=== PATIENT | female | born 1975 | race Caucasian/White ===

== ENCOUNTER 2019-07-28 08:03 | Outpatient (CLI) | payer OTHER, SELFPAY ==
--- NOTE | ~2019-07-28 | MM_ITS ---
EXAMINATION: MM screening [facility] BI w noemy HISTORY: Screening mammogram TECHNIQUE: Craniocaudal and mediolateral oblique 3-D tomosynthesis images were obtained and synthetic 2-D images were generated. CAD analysis was submitted and interpreted. COMPARISON: 07/14/2018, 07/21/2014 BREAST PARENCHYMAL COMPOSITION: The breasts are heterogeneously dense, which may obscure small masses . FINDINGS: There is no evidence of suspicious mass, calcification, or architectural distortion to sugg est malignancy in either breast. There has been no suspicious interval change. IMPRESSION: 1. No mammographic evidence of malignancy. 2. Recommend routine screening mammography in one year. BI-RADS Category 1: Negative Reviewed, dictated and finalized at location A.
== END 2019-07-28 08:04 | disposition home or self-care (01) ==
LOC: ANHIMG 08:09
PROVIDERS: Visit Provider Obstetrics & Gynecology
DX: Z12.31 Encounter for screening mammogram for malignant neoplasm of breast (principal)
CPT/HCPCS: 77063; 77067

== ENCOUNTER 2020-08-24 08:07 | Outpatient (CLI) | payer OTHER, SELFPAY ==
--- NOTE | ~2020-08-24 | MM_ITS ---
EXAMINATION: MM screening [facility] BI w noemy HISTORY: Screening mammogram TECHNIQUE: Craniocaudal and mediolateral oblique 3-D tomosynthesis images were obtained and synthetic 2-D images were generated. Rotated lateral craniocaudal views. CAD analysis was submitted and interp reted. COMPARISON: 07/28/2019, 07/12/2018, 07/21/2014 bilateral digital screening mammogram examinations BREAST PARENCHYMAL COMPOSITION: The breasts are heterogeneously dense, which may obscure small masses . FINDINGS: There is no evidence of suspicious mass, calcification, or architectural distortion to sugg est malignancy in either breast. There has been no suspicious interval change. IMPRESSION: 1. No mammographic evidence of malignancy. 2. Recommend routine screening mammography in one year. BI-RADS Category 1: Negative Reviewed, dictated and finalized at location A.
== END 2020-08-24 08:08 | disposition home or self-care (01) ==
LOC: ANHIMG 08:11
PROVIDERS: Visit Provider Nurse Practitioner Obstetrics & Gynecology
DX: Z12.31 Encounter for screening mammogram for malignant neoplasm of breast (principal)
CPT/HCPCS: 77063; 77067

== ENCOUNTER 2020-11-16 06:36 | Outpatient (CLI) | payer OTHER, SELFPAY ==
--- NOTE | ~2020-11-16 | MR_ITS ---
EXAMINATION: MR brain/brain stem wo/w con EXAM DATE: 11/16/2020 08:01 INDICATION: Multiple sclerosis, monitor. TECHNIQUE: Magnetic resonance imaging (MRI) of the brain/brain stem obtained without contrast. Sagit cyndee T1, axial diffusion, gradient echo (T2*), T1, T2, FLAIR sequences obtained. Patient was then inj ected with 13 cc intravenous Multihance contrast. Axial and coronal postcontrast T1 weighted sequence s obtained. Demyelinating protocol was utilized including sagittal FLAIR images. FINDINGS: There are approximately 20 signal abnormalities in the periventricular white matter, some i nvolving margins of the corpus callosum oriented perpendicularly to the ventricles, appearance is con sistent with the provided diagnosis of multiple sclerosis. Many of these lesions also have decreased T1 signal intensity. No posterior fossa lesions identified. There are no areas of abnormal enhancemen t on the post contrast images. There are no areas of restricted diffusion to suggest acute infarction. There is no acute hemorrhage seen on the T2*, a hemosiderin sensitive sequence. No intraparenchymal brain mass. The ventricles a re normal in size. There are no extra-axial collections. Flow voids are seen in the cerebral arteri es on the T2-weighted sequences consistent with their expected patency. The orbits are unremarkable. Soft tissue is unremarkable. IMPRESSION: Scattered white matter signal abnormalities consistent with quiescent multiple sclerosis. No enhancing lesions/evidence of active disease. Reviewed, dictated and finalized at location B. IMPRESSION: Scattered white matter signal abnormalities consistent with quiesce nt multiple sclerosis. No enhancing lesions/evidence of active disease.
[2020-11-16 07:28] LABS: Estimated Glomerular Filt Rate > 60
== END 2020-11-16 06:37 | disposition home or self-care (01) ==
DX: G35 Multiple sclerosis (principal); R93.0 Abnormal findings on diagnostic imaging of skull and head, not elsewhere classified
CPT/HCPCS: 70553; A9577

== ENCOUNTER 2021-10-14 08:02 | Outpatient (CLI) | payer OTHER, SELFPAY ==
--- NOTE | ~2021-10-14 | MM_ITS ---
EXAMINATION: MM screening [facility] BI w noemy HISTORY: Screening mammogram TECHNIQUE: Craniocaudal and mediolateral oblique 3-D tomosynthesis images were obtained and synthetic 2-D images were generated. CAD analysis was submitted and interpreted. COMPARISON: 08/24/2020, 07/20/2019, 07/14/2018 bilateral screening mammogram examinations BREAST PARENCHYMAL COMPOSITION: The breasts are heterogeneously dense, which may obscure small masses . FINDINGS: There is no evidence of suspicious mass, calcification, or architectural distortion to sugg est malignancy in either breast. There has been no suspicious interval change. IMPRESSION: 1. No mammographic evidence of malignancy. 2. Recommend routine screening mammography in one year. BI-RADS Category 1: Negative Reviewed, dictated and finalized at location A.
== END 2021-10-14 08:03 | disposition home or self-care (01) ==
LOC: ANHIMG 08:04
PROVIDERS: PCP Nurse Practitioner Obstetrics & Gynecology; Visit Provider Nurse Practitioner Obstetrics & Gynecology
DX: Z12.31 Encounter for screening mammogram for malignant neoplasm of breast (principal)
CPT/HCPCS: 77063; 77067

== ENCOUNTER → 2022-01-06 09:55 | Outpatient (CLI) | payer OTHER, SELFPAY ==
--- NOTE | ~2022-01-06 | MR_ITS ---
EXAMINATION: MR brain/brain stem wo/w con DATE: 01/06/2022 10:44 INDICATION: Multiple sclerosis. TECHNIQUE: Magnetic resonance imaging (MRI) of the brain and brainstem was performed without and with 13 mL MultiHance intravenous contrast. COMPARISON: Brain MRI 11/16/2020 FINDINGS: There are greater than 40 total lesions of increased T2-weighted signal intensity in the br ain, many of which are confluent. Of these lesions, many are periventricular, several are juxtacortic al, and multiple are infratentorial. None of the lesions enhance. There is no acute ischemic infarct or intracranial hemorrhage. The ventricles are normal in size. The orbits are normal. The paranasal s inuses are clear. The mastoid air cells are normal. IMPRESSION: 1. Multiple sclerosis, stable from 11/16/2020. Reviewed, dictated and finalized at location A. RWALKER
== END ==
DX: G35 Multiple sclerosis (principal)
CPT/HCPCS: 70553; A9577

== ENCOUNTER 2023-01-02 07:57 | Outpatient (CLI) | payer OTHER, SELFPAY ==
--- NOTE | ~2023-01-02 | MM_ITS ---
EXAMINATION: MM screening [facility] BI w noemy HISTORY: Screening mammogram TECHNIQUE: Craniocaudal and mediolateral oblique 3-D tomosynthesis images were obtained and synthetic 2-D images were generated. CAD analysis was submitted and interpreted. COMPARISON: 10/14/2021, 08/24/2020, 07/28/2019 BREAST PARENCHYMAL COMPOSITION: The breasts are heterogeneously dense, which may obscure small masses . FINDINGS: No suspicious mass, calcification, or architectural distortion are identified in either perlita ast to suggest malignancy. There has been no suspicious interval change. IMPRESSION: 1. No mammographic evidence of malignancy. 2. Recommend routine screening mammography in one year. BI-RADS Category 1: Negative Reviewed, dictated and finalized at location A.
== END 2023-01-02 07:58 | disposition home or self-care (01) ==
LOC: ANHIMG 08:03
PROVIDERS: Visit Provider Nurse Practitioner Obstetrics & Gynecology
DX: Z12.31 Encounter for screening mammogram for malignant neoplasm of breast (principal)
CPT/HCPCS: 77063; 77067

== ENCOUNTER → 2023-01-14 14:37 | Outpatient (CLI) | payer OTHER, SELFPAY ==
--- NOTE | ~2023-01-14 | MR_ITS ---
EXAMINATION: MR brain/brain stem wo/w con DATE: 01/14/2023 15:21 INDICATION: Relapsing remitting multiple sclerosis. TECHNIQUE: Magnetic resonance imaging (MRI) of the brain and brainstem was performed without and with 14 mL MultiHance intravenous contrast. COMPARISON: Brain MRI 01/06/2022 FINDINGS: There are greater than 40 total lesions of increased T2-weighted signal intensity in the br ain, many of which are confluent. Of these lesions, many are periventricular, several are juxtacortic al, and multiple are infratentorial. None of the lesions enhance. There is no acute ischemic infarct or intracranial hemorrhage. The ventricles are normal in size. The paranasal sinuses are clear. The m astoid air cells are normal. The orbits are normal. IMPRESSION: 1. Multiple sclerosis, stable from 01/06/2022. Reviewed, dictated and finalized at location A. R [employer]
== END ==
DX: G35 Multiple sclerosis (principal)
CPT/HCPCS: 70553; A9577

== ENCOUNTER 2024-04-05 09:05 | Outpatient (CLI) | payer OTHER, SELFPAY ==
--- NOTE | ~2024-04-05 | MM_ITS ---
EXAMINATION: MM screening courtney BI w noemy HISTORY: Screening TECHNIQUE: Craniocaudal and mediolateral oblique 3-D tomosynthesis images were obtained and synthetic 2-D images were generated. CAD analysis was submitted and interpreted. COMPARISON: Comparison to multiple prior studies sequentially, with oldest reviewed study dated 07/21. BREAST PARENCHYMAL COMPOSITION: Not Dense: The breasts are almost entirely fatty. FINDINGS: There is no evidence of suspicious mass, calcification, or architectural distortion to sugg est malignancy in either breast. There has been no suspicious interval change. IMPRESSION: 1. No mammographic evidence of malignancy. 2. Recommend routine screening mammography in one year. BI-RADS Category 1: Negative Reviewed, dictated and finalized at location B. DER SET UP OPERATOR JIG
--- OUTSIDE RECORDS SUMMARY | 2024-04-05 09:41 | XMS_ITS | Referral Summary ---
Author Organization [facility] Address [address] [place] [address] Care Team Providers Care Appeals Rn Name Role Phone Abdulaziz Miller MD Unavailable Laly Alonso DO Primary Care Provide r Source Comments [facility],non-owned Affiliates and Associated Physician Practices is amultiple site organization consisting of ambulatory clinics and hospital sitesin [place], [place], [place] and [place]. This disclosure is being madepursuant to the Care Everywhere program and may not contain all information available regarding this patient. Last updated 17.[facility] Allergies Active Allergy Reactions Criticality Noted Date Comments Latex Swelling 01/28/2017 Medications * Be aware that medications may not be up to date on this document. Alwaysverify current medications with the patient. Medication Sig Dispensed Refills Start Date End Date Status Glatiramer Acetate 40 MG/ML prefilled syringe Inject 20 mg subcutaneously Active benzonatate (TESSALON) 200 MG capsule Take 1 capsule by mouth 3 times daily as needed for Cough 30 capsule 02/21/2019 Active Additional Information Patient not taking.Reported on 03/10/2019 Active Problems Problem Noted Date Diagnosed Date Migraines 12/31/2009 Osteoarthritis 12/26/2008 Overview (12/26/2008): Lower back MS (multiple sclerosis) 05/09/2008 Screening for condition 05/09/2008 Overview (11/30/2014): Adult Abstraction Problem List Screening Pap Smear: Result: 12/28/2008,11/2006, 12/13/2007 Negative Mammogram: Result: Not avail in chart Immunizations Name Administration Dates Next Due TETANUS 03/02/2006 Social History Tobacco Use Types Packs/Day Years Used Date Smoking Tobacco: Never Smokeless Tobacco: Never Alcohol Use Standard Drinks/Week Comments Yes 0 (1 standard drink = 0.6 oz pur e alcohol) 1x weekly Sex and Gender Information Value Date Recorded Sex Assigned at Not on file Gender Identity Not on file Sexual Orientation Not on file Last Filed Vital Signs Vital Sign Reading Time Taken Comments Blood Pressure 110/70 03/10/2019 9:07 AM TRANSPORTATION SERVICES REPRESENTATIVE Pulse 77 03/10/2019 9:07 AM TRANSPORTATION SERVICES REPRESENTATIVE Temperature 37.2 ??C (98.9 ??F) 03/10/2019 9:07 AM CS T Respiratory Rate 16 03/10/2019 9:07 AM TRANSPORTATION SERVICES REPRESENTATIVE Oxygen Saturation 98% 03/10/2019 9:07 AM TRANSPORTATION SERVICES REPRESENTATIVE Inhaled Oxygen Concentration - - Weight 63.5 kg (140 lb) 03/10/2019 9:07 AM TRANSPORTATION SERVICES REPRESENTATIVE Height 160 cm (5' 3 ) 03/10/2019 9:07 AM TRANSPORTATION SERVICES REPRESENTATIVE Body Mass Index 24.8 03/10/2019 9:07 AM TRANSPORTATION SERVICES REPRESENTATIVE Plan of Treatment Not on file Procedures Procedure Name Priority Date/Time Associated Diagnosis Comments PAP IG RFLX HPV ASCU Routine 01/01/2010 10:20 AM CDT Routine gynecological examination from Last 3 Months or Most Recently Relevant to Health Maintenance Results * (ABNORMAL) PAP SMEAR IG RFLX HPV ASCU (PO REF LAB) (01/01/2010 10:20 AM CDT) Diagnosis (A) [facility] ACCOUNT BILL Comment: EPITHELIAL CELL ABNORMALITY. ATYPICAL SQUAMOUS CELLS OF UNDETERMINED SIGNIFICANCE. Recommendation (A) [facility] ACCOUNT BILL Comment:Suggest follow up as clinically appropriate. Specimen Adequacy [facility] ACCOUNT BILL Comment: Satisfactory for evaluation. ??Endocervical and/or squamous metaplastic cells (endocervical component) are present. Clinician Provided ICD9 [facility] ACCOUNT BILL Comment:V72.31 ; Routine stop attacher ecological examination Performed by [facility] ACCOUNT BILL Comment:Mariela Wiggins, Cyto technologist (ASCP) Electronically Signed by [facility] ACCOUNT BILL Comment:Margarita Briseno MD, Pathologist Comment . [facility] ACCOUNT BILL Pathologist Provided ICD9 [facility] ACCOUNT BILL Comment:795.01 Note [facility] ACCOUNT BILL Comment: The Pap smear is a screening test designed to aid in the detection of premalignant and malignant conditions of the uterine cervix. ??It is not a diagnostic procedure and should not be used as the sole means of detecting cervical cancer. ??Both false-positive and false-negative reports do occur. ? . IGLBP CPT Code Automation [facility] ACCOUNT BILL Comment: This liquid based ThinPrep(R) pap test was screened with the use of an image guided system. Reflex [facility] ACCOUNT BILL Comment: See below for HPV DNA testing results. ? . MICROSCOPIC CYTOLOGIC EXAMINATION OF SMEAR OF SPECIMEN FROM FEMALE GENITAL TRACT PREPARED USING PAPANICOLAOU TECHNIQUE / Unknown 01/01/2010 10:20 AM CDT 01/02/2010 3:45 AM CDT Narrative [facility] ACCOUNT BILL - 01/07/2010 4:13 PM TRANSPORTATION SERVICES REPRESENTATIVE No. of containers..01 CYTYC Thin Prep Vial Resulting Agency Comment [facility] [facility] ??[place] [phone] Abdulaziz Miller MD LAB - PATHOLOGY/CYTO LOGY ORDERABLES [facility] ACCOUNT BILL from Last 3 Months or Most Recently Relevant to Health Maintenance Care Teams Appeals Rn Relationship Specialty Start Date End Date Abdulaziz Miller MD [address] [facility] [facility] [address] [place] [address] PCP - OBGYN 12/26/08 Laly Alonso DO [address] [place] [id number] PCP - General 03/03/19
--- OUTSIDE RECORDS SUMMARY | 2024-04-05 09:41 | XMS_ITS | Clinical Summary ---
Author Organization [facility] Address [address] [place] [address] Care Team Providers Care Automation Tester Name Role Phone Abdulaziz Miller MD Unavailable Laly Alonso DO Primary Care Provide r Source Comments [facility],non-owned Affiliates and Associated Physician Practices is amultiple site organization consisting of ambulatory clinics and hospital sitesin [place], [place], [place] and [place]. This disclosure is being madepursuant to the Care Everywhere program and may not contain all information available regarding this patient. Last updated 17.[facility] Allergies Active Allergy Reactions Criticality Noted Date [...] Name Administration Dates Next Due TETANUS 03/02/2006 Family History Medical History Relation Name Comments Cancer Maternal Grandfather Cancer Maternal Grandmother Migraine Maternal Grandmother Relation Name Status Comments Maternal Grandfather Maternal Grandmother Social History Tobacco Use Types Packs/Day Years [...] Comments Blood Pressure 110/70 03/10/2019 9:07 AM DIRECTOR TRIAL Pulse 77 03/10/2019 9:07 AM DIRECTOR TRIAL Temperature 37.2 ??C (98.9 ??F) 03/10/2019 9:07 AM CS T Respiratory Rate 16 03/10/2019 9:07 AM DIRECTOR TRIAL Oxygen Saturation 98% 03/10/2019 9:07 AM DIRECTOR TRIAL Inhaled Oxygen Concentration - - Weight 63.5 kg (140 lb) 03/10/2019 9:07 AM DIRECTOR TRIAL Height 160 cm (5' 3 ) 03/10/2019 9:07 AM DIRECTOR TRIAL Body Mass Index 24.8 03/10/2019 9:07 AM DIRECTOR TRIAL Plan of Treatment Health Maintenance Due Date Last Done Comments COLOGUARD (AGES 45-75) - COL ON CA SCREENING 1973 COLON MONITORING 1973 COLONOSCOPY - COLON CA SCREENING 1973 CT COLONOGRAPHY - COLON CA SCREENING 1973 Colorectal Cancer Screening 1973 FIT - COLON CA SCREENING 1973 FLEX SIG - COLON CA SCREENING 1973 LIPID TESTING 1973 MAMMOGRAM 1973 HIV SCREENING 1988 HEPATITIS C SCREENING 05/27/1991 HEPATITIS B VACCINE (1 of 3 - 19+ 3-dose series) 1992 PAP SMEAR 01/01/2013 01/01/2010, 12/28/2008 DTAP/TDAP/TD VACCINES (2 - T d or Tdap) 03/02/2016 03/02/2006 PNEUMOCOCCAL VACCINE 50+ (1 of 1 - PCV) 06/01/2023 ZOSTER VACCINE (1 of 2) 06/01/2023 COVID-19 VACCINE (1 - 2023-2 5 season) 2023 INFLUENZA VACCINE (#1) 2023 DEPRESSION SCREENING 03/02/2024 HIB VACCINE Aged Out No longer eligi ble based on patient's age to complete this topic HPV VACCINE Aged Out No longer eligi ble based on patient's age to complete this topic MENINGOCOCCAL (Group B) VACCINE Aged Out No longer eligible b ased on patient's age to complete this topic MENINGOCOCCAL VACCINE Aged Out No jesús lupe eligible based on patient's age to complete this topic PNEUMOCOCCAL VACCINE Aged Out No long er eligible based on patient's age to complete this topic Procedures Procedure Name Priority Date/Time Associated Diagnosis [...] ICD9 [facility] ACCOUNT BILL Comment:V72.31 ; Routine byproducts pump operator ecological examination Performed by [facility] ACCOUNT BILL [...] [facility] ACCOUNT BILL - 01/07/2010 4:13 PM DIRECTOR TRIAL No. of containers..01 CYTYC Thin Prep Vial Resulting Agency Comment [facility] [address] [phone] Abdulaziz Miller MD LAB - PATHOLOGY/CYTO LOGY ORDERABLES Performing Organization Address City/State/[facility] Co de Phone Number [facility] ACCOUNT BILL from Last 3 Months or Most Recently Relevant to Health Maintenance Care Teams Automation Tester Relationship Specialty Start Date End Date Abdulaziz Miller MD [address] [place] [address] [address] [place] [address] PCP - OBGYN 12/26/08 Laly Alonso DO [address] [place] [id number] PCP - General 03/03/19
--- OUTSIDE RECORDS SUMMARY | 2024-04-05 09:41 | XMS_ITS | Encounter Summary ---
Author Organization [facility] Address [address] [facility] [place] [address] Care Team Providers Care Dial Maker Name Role Phone Laly Alonso DO Primary Care Provide r Abdulaziz Miller MD Unavailable None, Pcp Primary Care Provider Unavailabl e Abdulaziz Miller MD Primary Care Provider Laly Alonso DO Primary Care Provide r Encounter Details Date Type Department Care Team (Late st Contact Info) Description 08/22/2010 [facility] Outpatient Visit EXTERNAL NON-[facility] DEPT Abdulaziz Miller MD [address] [facility] [address] [place] [address] Social History Tobacco Use Types Packs/Day Years Used Date Smoking Tobacco: Never Alcohol Use Standard Drinks/Week Comments Yes 0 (1 standard drink = 0.6 oz pur e alcohol) 1x weekly Sex and Gender Information Value Date Recorded Sex Assigned at Not on file Gender Identity Not on file Sexual Orientation Not on file documented as of this encounter Plan of Treatment Not on file documented as of this encounter Visit Diagnoses Not on filedocumented in this encounter Care Teams Dial Maker Relationship Specialty Start Date End Date Laly Alonso DO [address] [place] [id number] PCP - General 05/09/08 09/03/12 Abdulaziz Miller MD [address] [place] [address] PCP - OBGYN 12/26/08 None, Pcp [place] [address] PCP - General 09/04/12 05/24/13 Abdulaziz Miller MD [address] [facility] [address] [place] [address] PCP - General Obstetrics and Gynecology 08/31/1303/02 Laly Alonso DO [address] [place] [id number] PCP - General 03/03/19 documented as of this encounter
--- OUTSIDE RECORDS SUMMARY | 2024-04-05 09:41 | XMS_ITS | Patient Health Summary ---
Author Organization [facility] Address [address] [place] [address] Care Team Providers Care Analysis Or Research Safety Inspector Name Role Phone Bertrand Miller MD Unavailable Laly Torre DO Primary Care Provide r Note from [facility],non-owned Affiliates and Associated Physician Practices is amultiple site organization consisting of ambulatory clinics and hospital sitesin [place], [place], [place] and [place]. This disclosure is being madepursuant to the Care Everywhere program and may not contain all information available regarding this patient. Last updated 17.[facility] Allergies * Latex(Swelling) Medications * Be aware that medications may not be up to date on this document. Alwaysverify current medications with the patient. * Glatiramer Acetate 40 MG/ML prefilled syringe Inject 20 mg subcutaneously * benzonatate (TESSALON) 200 MG capsule(Started 02/21/2019) Take 1 capsule by mouth 3 times daily as needed for Cough Active Problems Problem Noted Date Diagnosed Date Migraines 12/31/2009 Osteoarthritis 12/26/2008 MS (multiple sclerosis) 05/09/2008 Screening for condition 05/09/2008 Immunizations * TETANUS(Given 03/02/2006) Social History Tobacco Use Types Packs/Day Years [...] Comments Blood Pressure 110/70 03/10/2019 9:07 AM OFFSET PRESSMAN Pulse 77 03/10/2019 9:07 AM OFFSET PRESSMAN Temperature 37.2 ??C (98.9 ??F) 03/10/2019 9:07 AM CS T Respiratory Rate 16 03/10/2019 9:07 AM OFFSET PRESSMAN Oxygen Saturation 98% 03/10/2019 9:07 AM OFFSET PRESSMAN Inhaled Oxygen Concentration - - Weight 63.5 kg (140 lb) 03/10/2019 9:07 AM OFFSET PRESSMAN Height 160 cm (5' 3 ) 03/10/2019 9:07 AM OFFSET PRESSMAN Body Mass Index 24.8 03/10/2019 9:07 AM OFFSET PRESSMAN Procedures * MRI BRAIN WWO CONTRAST(Performed 09/10/2015) Performed for Migraine with aura and without status migrainosus, not intractable * MRI BRAIN WWO CONTRAST(Performed 09/05/2013) Performed for MS (multiple sclerosis) (HCC) * MRI BRAIN WWO CONTRAST(Performed 09/13/2012) Performed for MS (multiple sclerosis) (HCC) * MRI BRAIN WWO CONTRAST(Performed 07/21/2011) Performed for Multiple sclerosis (HCC) * LAB RESULTS ORDER(Performed 09/04/2010) * PATHOLOGY SPECIMEN(Performed 08/22/2010) Performed for Menorrhagia * TSH HI LOW REFLEX FREE T4(Performed 07/26/2010) * COMPREHENSIVE METABOLIC PANEL(Performed 07/26/2010) * FSH + LH PANEL(Performed 07/26/2010) Performed for Menorrhagia * CBC W AUTO DIFFERENTIAL(Performed 07/26/2010) Performed for Menorrhagia * PT-INR(Performed 07/26/2010) Performed for Menorrhagia * PTT(Performed 07/26/2010) Performed for Menorrhagia * US PELVIS W TRANSVAG NON OB(Performed 07/26/2010) Performed for Menorrhagia * PAP IG RFLX HPV ASCU(Performed 01/01/2010) Performed for Routine gynecological examination * HPV DNA PROBE HIGH RISK(Performed 01/01/2010) Performed for Routine gynecological examination * PAP IG RFLX HPV ASCU(Performed 12/28/2008) Performed for Routine Gynecological Examination * MRIO BRAIN WWO CONT(Performed 05/17/2008) Performed for Multiple Sclerosis (HCC) * GROSS EXAM PATHOLOGY(Performed 08/19/2004) Results * MRI BRAIN WITH AND WITHOUT CONTRAST (09/10/2015 11:00 AM CDT) Only the most recent of4 resultswithin the time period is included. Anatomical Region Laterality Modality Head Magnetic Resonan ce 09/10/2015 11:2 7 AM CDT Impressions 09/10/2015 11:53 AM CDT Multiple foci of abnormal signal intensity on T2-weighted sequences demonstrate a morphology and distribution typical of demyelinating disease. When compared to previous examination of 2013, there is one right frontal lobe lesion which appears new. A single left parietal white matter lesion seen on previous examination is no longer confidently visualized. There are no areas of abnormal enhancement or restricted diffusion to suggest acute demyelination. Edited by Ese Felipe on 09/10/2015 11:48 AM Narrative 09/10/2015 11:53 AM CDT MRI Brain with contrast Indication: Multiple sclerosis, restaging examination Comparison: September 05, 2013. Technique: The following sequences were obtained: Axial diffusion, axial dual-echo T2, sagittal and axial T1 pre- and postgadolinium, coronal T1 postgadolinium, coronal and axial FLAIR. Sagittal FLAIR and sagittal dual echo T2-weighted sequences were additionally performed per MS protocol. 12 mL Dotarem was administered for this examination. Findings: T2-weighted sequences demonstrate multiple foci of abnormal high signal intensity in the supratentorial white matter bilaterally in a periventricular and pericallosal distribution. Many of these are ovoid in morphology typical of demyelinating lesions. When compared to previous examination of September 05, 2013, one lesion in the right pericallosal U-fiber seen on image 9 of series 801 appears new. One small punctate white matter lesion in the left parietal lobe on image 22 of series 801 is no longer visualized. There are no areas of abnormal restricted diffusion or enhancement following administration of gadolinium to suggest the presence of acute demyelination. Ventricles and sulci are within normal limits in size. There is no intracranial hemorrhage, mass, or mass-effect. No abnormal extra-axial fluid collection is seen. After administration of gadolinium, there is no abnormal enhancement. The region of the pituitary gland, pineal gland, and foramen magnum are normal. Visualized cranial and facial soft tissues are unremarkable. Major arterial and dural venous flow-voids at the skull base are patent. Procedure Note Adele Main MD - 09/10/2015 MRI Brain with contrast Indication: Multiple sclerosis, restaging examination Comparison: September 05, 2013. Technique: The following sequences were obtained: Axial diffusion, axial dual-echo T2, sagittal and axial T1 pre- and postgadolinium, coronal T1 postgadolinium, coronal and axial FLAIR. Sagittal FLAIR and sagittal dual echo T2-weighted sequences were additionally performed per MS protocol. 12 mL Dotarem was administered for this examination. Findings: T2-weighted sequences demonstrate multiple foci of abnormal high signal intensity in the supratentorial white matter bilaterally in a periventricular and pericallosal distribution. Many of these are ovoid in morphology typical of demyelinating lesions. When compared to previous examination of September 05, 2013, one lesion in the right pericallosal U-fiber seen on image 9 of series 801 appears new. One small punctate white matter lesion in the left parietal lobe on image 22 of series 801 is no longer visualized. There are no areas of abnormal restricted diffusion or enhancement following administration of gadolinium to suggest the presence of acute demyelination. Ventricles and sulci are within normal limits in size. There is no intracranial hemorrhage, mass, or mass-effect. No abnormal extra-axial fluid collection is seen. After administration of gadolinium, there is no abnormal enhancement. The region of the pituitary gland, pineal gland, and foramen magnum are normal. Visualized cranial and facial soft tissues are unremarkable. Major arterial and dural venous flow-voids at the skull base are patent. IMPRESSION Multiple foci of abnormal signal intensity on T2-weighted sequences demonstrate a morphology and distribution typical of demyelinating disease. When compared to previous examination of 2013, there is one right frontal lobe lesion which appears new. A single left parietal white matter lesion seen on previous examination is no longer confidently visualized. There are no areas of abnormal enhancement or restricted diffusion to suggest acute demyelination. Edited by Ese Felipe on 09/10/2015 11:48 AM Meg Ramírez MD MR ORDERABLES * LAB RESULTS ORDER (09/04/2010) Bertrand Miller MD LAB - THERAPEUTIC DR GREEN MONITORING ORDERABLES * PATHOLOGY SPECIMEN (08/22/2010 4:29 PM CDT) Material [facility] ACCOUNT BILL Comment: Material submitted: ? . ENDOMETRIAL BIOPSY F Diagnosis [facility] ACCOUNT BILL Comment: Diagnosis: ENDOMETRIAL BIOPSY : INACTIVE ENDOMETRIUM. NO HYPERPLASIA OR CARCINOMA. [facility]/08/26/2010 Signed [facility] ACCOUNT BILL Comment: Electronically signed: ?. Keith Fontanez MD, Pathologist Grossed [facility] ACCOUNT BILL Comment: Gross description: ?. RECEIVED IN FORMALIN DESIGNATED EMB ARE MULTIPLE FRAGMENTS OF QUARLES YELLOW TISSUE AND MUCOID MATERIAL MEASURING 1.4 X 0.8 X 0.1 CM IN AGGREGATE. ??IT IS FILTERED THROUGH AN EMBEDDING BAG AND SUBMITTED RECEIVED IN A SINGLE CASSETTE. LMS/MIRACLE ICD-9 [facility] ACCOUNT BILL Comment: Pathologist provided ICD-9: 626.2 CPT [facility] ACCOUNT BILL Comment: CPT ?. 754624 SURGICAL PATHOLOGY SPECIMEN, CLERICAL PROCEDURE INCLUDING CODING OF DIAGNOSES / Unknown 08/22/2010 4:29 PM CDT 08/23/2010 10:35 AM CDT Narrative Resulting Agency Comment [facility] [place] [address] [address] [place] [address] Bertrand Miller MD LAB - PATHOLOGY/CYTO LOGY ORDERABLES [facility] ACCOUNT BILL * TSH HI LOW REFLEX FREE T4 (PO REF LAB) (07/26/2010 3:53 PM CDT) TSH 2.280 0.450 - 4.500 uIU/mL [facility] ACCOUNT BILL 07/26/2010 3:53 PM CDT 07/30/2010 2:54 PM CDT Narrative Resulting Agency Comment [facility] [address] ??[facility] [phone] Bertrand Miller MD LAB - CHEMISTRY ORDHector ERICKSON [facility] ACCOUNT BILL * CBC W AUTO DIFFERENTIAL (07/26/2010 3:53 PM CDT) WBC 7.7 4.0 - 10.5 x10E3/uL [facility] ACCOUNT BILL RBC 4.23 3.80 - 5.10 x10E6/uL [facility] ACCOUNT BILL Hemoglobin 13.2 11.5 - 15.0 g/dL [facility] ACCOUNT BILL Hematocrit 39.4 34.0 - 44.0 % [facility] ACCOUNT BILL MCV 93 80 - 98 fL [facility] ACCOUNT BILL MCH 31.2 27.0 - 34.0 pg [facility] ACCOUNT BILL MCHC 33.5 32.0 - 36.0 g/dL [facility] ACCOUNT BILL RDW 13.1 11.7 - 15.0 % [facility] ACCOUNT BILL Platelet Count 205 140 - 415 x10E3/uL [facility] ACCOUNT BILL Granulocytes % 57 40 - 74 % [facility] ACCOUNT BILL Lymphocytes % 34 14 - 46 % [facility] ACCOUNT BILL Monocytes % 7 4 - 13 % [facility] ACCOUNT BILL Eosinophils % 2 0 - 7 % [facility] ACCOUNT BILL Basophils % 0 0 - 3 % [facility] ACCOUNT BILL Immature Cells NOT NEEDED [facility] ACCOUNT BILL Comment:Ancillary determined the test is not needed Granulocytes Absolute 4.3 1.8 - 7.8 x10E3/uL [facility] ACCOUNT BILL Lymphocytes Absolute 2.6 0.7 - 4.5 x10E3/uL [facility] ACCOUNT BILL Monocytes Absolute 0.5 0.1 - 1.0 x10E3/uL [facility] ACCOUNT BILL Eosinophils Absolute 0.2 0.0 - 0.4 x10E3/uL [facility] ACCOUNT BILL Basophils Absolute 0.0 0.0 - 0.2 x10E3/uL [facility] ACCOUNT BILL Immature Granulocytes 0 0 - 2 % [facility] ACCOUNT BILL Comment:Please note refere nce interval change Immature Granulocytes Absolute 0.0 0.0 - 0.1 x10E3/uL [facility] ACCOUNT BILL nRBC NOT NEEDED [facility] ACCOUNT BILL Comment:Ancillary determined the test is not needed Comment Hematology NOT NEEDED [facility] ACCOUNT BILL Comment:Ancillary determined the test is not needed BLOOD SPECIMEN / Unknown 07/26/2010 3:53 PM CDT 07/26/2010 6:47 PM CDT Narrative Resulting Agency Comment [facility] [address] ??[facility] [phone] Bertrand Miller MD LAB - HEMATOLOGY ORD ERABLES [facility] ACCOUNT BILL * COMPREHENSIVE METABOLIC PANEL (07/26/2010 3:53 PM CDT) [facility] Glucose 85 65 - 99 mg/dL [facility] ACCOUNT BILL BUN 10 6 - 20 mg/dL [facility] ACCOUNT BILL Creatinine 0.92 0.57 - 1.00 mg/dL [facility] ACCOUNT BILL eGFR by MDRD 80 >59 mL/min/1.7 3 [facility] ACCOUNT BILL eGFR by MDRD 92 >59 mL/min/1.7 3 [facility] ACCOUNT BILL Comment: Note: A persistent eGFR <60 mL/min/1.73 m2 (3 months or more) may indicate chronic kidney disease. An eGFR >59 mL/min/1.73 m2 with an elevated urine protein also may indicate chronic kidney disease. Calculated using CKD-EPI formula. BUN/Creatinine Ratio 11 8 - 20 [facility] ACCOUNT BILL Sodium 141 135 - 145 mmol/L [facility] ACCOUNT BILL Potassium 4.4 3.5 - 5.2 mmol/L [facility] ACCOUNT BILL Chloride 104 97 - 108 mmol/L [facility] ACCOUNT BILL CO2 20 20 - 32 mmol/L [facility] ACCOUNT BILL Calcium 9.2 8.7 - 10.2 mg/dL [facility] ACCOUNT BILL Protein Total 6.9 6.0 - 8.5 g/dL [facility] ACCOUNT BILL Albumin 3.9 3.5 - 5.5 g/dL [facility] ACCOUNT BILL Globulin Total 3.0 1.5 - 4.5 g/dL [facility] ACCOUNT BILL Albumin/Globulin Ratio 1.3 1.1 - 2.5 [facility] ACCOUNT BILL Bilirubin Total 0.2 0.0 - 1.2 mg/dL [facility] ACCOUNT BILL Alkaline Phosphatase 49 25 - 150 IU/L [facility] ACCOUNT BILL AST 22 0 - 40 IU/L [facility] ACCOUNT BILL ALT 17 0 - 40 IU/L [facility] ACCOUNT BILL 07/26/2010 3:53 PM CDT 07/30/2010 2:54 PM CDT Narrative Resulting Agency Comment [facility] [address] ??[facility] [phone] Bertrand Miller MD LAB - CHEMISTRY DAVID ERICKSON [facility] ACCOUNT BILL * FSH + LH PANEL (07/26/2010 3:53 PM CDT) LH 0.8 mIU/mL [facility] ACCOUNT BILL Comment: ? Follicular phase ?2.4 - ??12.6 ? Ovulation phase ?14.0 - ??95.6 ? Luteal phase ?1.0 - ??11.4 ? Postmenopausal ?7.7 - ??58.5 FSH 1.6 mIU/mL [facility] ACCOUNT BILL Comment: ? Follicular phase ?3.5 - ??12.5 ? Ovulation phase ? 4.7 - ??21.5 ? Luteal phase ?1.7 - ?? 7.7 ? Postmenopausal ? 25.8 - 134.8 BLOOD SPECIMEN / Unknown 07/26/2010 3:53 PM CDT 07/26/2010 6:47 PM CDT Narrative Resulting Agency Comment [facility] [address] ??[facility] [phone] Bertrand Miller MD LAB - CHEMISTRY DAVID ERICKSON [facility] ACCOUNT BILL * PTT (07/26/2010 3:52 PM CDT) PTT 25 24 - 33 sec [facility] ACCOUNT BILL Comment: This test has not been validated for monitoring unfractionated heparin therapy. aPTT-based therapeutic ranges for unfractionated heparin therapy have not been established. For general guidelines on Heparin monitoring, refer to the [facility] Directory of Services. BLOOD SPECIMEN / Unknown 07/26/2010 3:52 PM CDT 07/26/2010 6:47 PM CDT Narrative Resulting Agency Comment [facility] [place] [address] ??[facility] [phone] Bertrand Miller MD LAB - COAGULATION OR DERABLES [facility] ACCOUNT BILL * PT-INR (07/26/2010 3:52 PM CDT) INR 1.0 0.8 - 1.2 [facility] ACCOUNT BILL Comment: ? Reference interval is for non-anticoagulated patients. ?. ? Suggested INR therapeutic range for Vitamin K ? antagonist therapy: ?Standard Dose (moderate intensity ? therapeutic range): ? 2.0 - 3.0 ?Higher intensity therapeutic range ? 2.5 - 3.5 PT 10.3 8.7 - 11.5 sec [facility] ACCOUNT BILL BLOOD SPECIMEN / Unknown 07/26/2010 3:52 PM CDT 07/26/2010 6:47 PM CDT Narrative Resulting Agency Comment [facility] [place] [address] ??[facility] [phone] Bertrand Miller MD LAB - COAGULATION OR DERABLES [facility] ACCOUNT BILL * US PELVIS WITH TRANSVAG NON OB (07/26/2010 3:43 PM CDT) Anatomical Region Laterality Modality Pelvis Ultrasound 07/26/2010 4:45 PM CDT Impressions 07/26/2010 5:01 PM CDT Unremarkable exam. Narrative 07/26/2010 5:01 PM CDT ULTRASOUND PELVIS TRANSABDOMINAL ULTRASOUND PELVIS TRANSVAGINAL INDICATION: Pelvic pain and vaginal bleeding. FINDINGS Transabdominal and transvaginal ultrasound show the uterus to measure 7.98 X 2.55 X 4.14 cm. The endometrial canal is unremarkable at 0.32 cm. The right ovary measures 2.21 X 1.92 X 1.51 cm for a total volume of 3.36 cc. The left ovary measures 2.64 X 1.41 X 1.13 cm for a total volume of 2.21 cc. There is no free fluid or adnexal mass. Procedure Note Andrea Desai MD - 07/26/2010 ULTRASOUND PELVIS TRANSABDOMINAL ULTRASOUND PELVIS TRANSVAGINAL INDICATION: Pelvic pain and vaginal bleeding. FINDINGS Transabdominal and transvaginal ultrasound show the uterus to measure 7.98 X 2.55 X 4.14 cm. The endometrial canal is unremarkable at 0.32 cm. The right ovary measures 2.21 X 1.92 X 1.51 cm for a total volume of 3.36 cc. The left ovary measures 2.64 X 1.41 X 1.13 cm for a total volume of 2.21 cc. There is no free fluid or adnexal mass. IMPRESSION Unremarkable exam. Bertrand Miller MD US ORDERABLES * (ABNORMAL) PAP SMEAR IG RFLX HPV ASCU (PO REF LAB) (01/01/2010 10:20 AM CDT) Only the most recent of2 resultswithin the time period is included. Diagnosis (A) [facility] ACCOUNT BILL Comment: EPITHELIAL CELL ABNORMALITY. ATYPICAL SQUAMOUS CELLS OF UNDETERMINED SIGNIFICANCE. Recommendation (A) [facility] ACCOUNT BILL Comment:Suggest follow up as clinically appropriate. Specimen Adequacy [facility] ACCOUNT BILL Comment: Satisfactory for evaluation. ??Endocervical and/or squamous metaplastic cells (endocervical component) are present. Clinician Provided ICD9 [facility] ACCOUNT BILL Comment:V72.31 ; Routine culture media laboratory assistant ecological examination Performed by [facility] ACCOUNT BILL [...] [facility] ACCOUNT BILL - 01/07/2010 4:13 PM OFFSET PRESSMAN No. of containers..01 CYTYC Thin Prep Vial Resulting Agency Comment [facility] [place] [address] [facility] ??[place] [phone] Bertrand Miller MD LAB - PATHOLOGY/CYTO LOGY ORDERABLES [facility] ACCOUNT BILL * HPV DNA PROBE HIGH RISK (01/01/2010 10:20 AM CDT) Human papillomavirus High Risk Negative Negative [facility] ACCOUNT BILL Comment: This high-risk HPV test detects thirteen high-risk types (16/18/31/33/35/39/45/51/52/56/58/59/68) without differentiation. ?. MICROSCOPIC CYTOLOGIC EXAMINATION OF SMEAR OF SPECIMEN FROM FEMALE GENITAL TRACT PREPARED USING PAPANICOLAOU TECHNIQUE / Unknown 01/01/2010 10:20 AM CDT 01/02/2010 3:45 AM CDT Narrative [facility] ACCOUNT BILL - 01/07/2010 4:13 PM OFFSET PRESSMAN No. of containers..01 CYTYC Thin Prep Vial Resulting Agency Comment [facility] [place] [address] ??[place] [phone] Bertrand Miller MD LAB - MICROBIOLOGY O RDERABLES [facility] ACCOUNT BILL * MRIO BRAIN W/WO CONTRAST (05/17/2008 11:45 AM CDT) Anatomical Region Laterality Modality Other 05/17/2008 11:4 5 AM CDT Narrative 05/26/2008 2:12 PM CDT EXAMINATION- MRI BRAIN, WITH AND WITHOUT CONTRAST. INDICATION FOR EXAMINATION- Multiple sclerosis. Precontrast T1 and T2-weighted images with contrast-enhanced T1-weighted images of the brain are obtained. 13 cc Omniscan contrast were used. Comparison is made with a previous examination of 06/19/05. There is redemonstration of multiple punctate areas of abnormal signal intensity within the subependymal and periventricular white matter, consistent with the clinical diagnosis of multiple sclerosis. The pattern appears similar to the previous examination. An enhancing lesion in the right centrum semiovale identified on the previous examination of 06/19/05 no longer shows enhancement. No discrete brainstem abnormality is identified. There is no acute infarct. The ventricles are normal in size. Contrast-enhanced images show no abnormal enhancement. CONCLUSION- PUNCTATE AREAS OF ABNORMAL SIGNAL INTENSITY WITHIN THE PERIVENTRICULAR WHITE MATTER BILATERALLY CONSISTENT WITH THE CLINICAL DIAGNOSIS OF MULTIPLE SCLEROSIS. ??THE PATTERN APPEARS SIMILAR TO THE PREVIOUS EXAMINATION OF 06/19/05. THE PROMINENT ENHANCING LESION, RIGHT CENTRUM SEMIOVALE, IDENTIFIED PREVIOUSLY NO LONGER SHOWS CONTRAST ENHANCEMENT. NO CORTICAL INFARCT. ??NO MASS LESION. NO ABNORMAL ENHANCEMENT IDENTIFIED ON THIS EXAMINATION. ? Read By- CARLOTTA HINES ??M.D. ? Released By- CARLOTTA HINES ??M.D. ? Released Date Time- 05/26/08 1412 ? Coppersmith Apprentice- PMN ? ADM- MEG RAMÍREZ ? ATT- MEG RAMÍREZ REF- MEG RAMÍREZ ? CON- PCP- LALY TORRE ?SCP- Procedure Note Carlotta Hines MD - 05/26/2008 EXAMINATION- MRI BRAIN, WITH AND WITHOUT CONTRAST. INDICATION FOR EXAMINATION- Multiple sclerosis. Precontrast T1 and T2-weighted images with contrast-enhanced T1-weighted images of the brain are obtained. 13 cc Omniscan contrast were used. Comparison is made with a previous examination of 06/19/05. There is redemonstration of multiple punctate areas of abnormal signal intensity within the subependymal and periventricular white matter, consistent with the clinical diagnosis of multiple sclerosis. The pattern appears similar to the previous examination. An enhancing lesion in the right centrum semiovale identified on the previous examination of 06/19/05 no longer shows enhancement. No discrete brainstem abnormality is identified. There is no acute infarct. The ventricles are normal in size. Contrast-enhanced images show no abnormal enhancement. CONCLUSION- PUNCTATE AREAS OF ABNORMAL SIGNAL INTENSITY WITHIN THE PERIVENTRICULAR WHITE MATTER BILATERALLY CONSISTENT WITH THE CLINICAL DIAGNOSIS OF MULTIPLE SCLEROSIS. THE PATTERN APPEARS SIMILAR TO THE PREVIOUS EXAMINATION OF 06/19/05. THE PROMINENT ENHANCING LESION, RIGHT CENTRUM SEMIOVALE, IDENTIFIED PREVIOUSLY NO LONGER SHOWS CONTRAST ENHANCEMENT. NO CORTICAL INFARCT. NO MASS LESION. NO ABNORMAL ENHANCEMENT IDENTIFIED ON THIS EXAMINATION. Read By- CARLOTTA HINES M.D. Released By- CARLOTTA HINES M.D. Released Date Time- 05/26/08 1412 Coppersmith Apprentice- PMN - DAVID,MEG ATT- DAVID,MEG REF- DAVID,MEG LAU- DINA- LALY TORRE [facility]- Meg Ramírez MD MR ORDERABLES * GROSS EXAM PATHOLOGY (08/19/2004 12:00 AM CDT) Result CASE NUMBER [id number] Comment: ORDERING PHYSICIAN ??BERTRAND MILLER SPECIMEN TYPE ?Placenta Surgeon ?DR. BERTRAND MILLER Gross Exam ? Dr. Claus Vicente M.D. Report Text ? COPY TO INDICATION FOR PROCEDURE ?? ARCHIVE OPERATION ?? GROSS THE SPECIMEN IS RECEIVED IN ONE CONTAINER LABELED WITH THE PATIENT'S NAME AND PLACENTA AND CONSISTS OF ??A DISC SHAPED PLACENTA MEASURING APPROXIMATELY ??22 X 20 X 2.0 CM. ??THE UMBILICAL CORD IS ECCENTRICALLY INSERTED, 7 CM FROM THE MARGIN AND MEASURES APPROXIMATELY 45 CM IN LENGTH. ??CUT SURFACE SHOWS THREE BLOOD VESSELS. ??THE MEMBRANES ARE THICKENED AND OPAQUE. THE MATERNAL SURFACE IS COMPLETE AND THERE IS ??A AN ACCESSORY LOBE MEASURING APPROXIMATELY 8 X 5 CM. ??SERIAL SECTIONING SHOW UNREMARKABLE SPONGY PARENCHYMA. THE SURFACE IS ESSENTIALLY UNREMARKABLE. ??THE PLACENTA WEIGHS APPROXIMATELY ??470 GMS. ?? C WEB DEVELOPER SECTIONS SUBMITTED FOLLOWS A- ?CORD AND MEMBRANES B- ?PARENCHYMA SL/JMC DIAGNOSIS ? DIAGNOSIS [1] PLACENTA, SECTION -- ?PLACENTA AND THREE VESSEL CORD (GROSS EXAMINATION, ?ARCHIVE MATERIAL) AB/CS Released By ?ELIER LARA CPT Code ? 51210-184 MISCELLANEOUS SAMPLE S / Unknown 08/19/2004 08/20/2004 8:54 AM CDT Historical Provider LAB - PATHOLOGY/C YTOLOGY ORDERABLES Care Teams Analysis Or Research Safety Inspector Relationship Specialty Start Date End Date Bertrand Miller MD [address] [place] [address] [address] [place] [address] PCP - OBGYN 12/26/08 Laly Torre DO [address] [place] [address] PCP - General 03/03/19
--- OUTSIDE RECORDS SUMMARY | 2024-04-05 09:41 | XMS_ITS | Clinical Summary ---
Author Organization [facility] Address [address] [address] Care Team Providers Care Hot Knife Cutter Name Role Phone No, Physician Primary Care Provider [phone] Allergies Active Allergy Reactions Criticality Noted Date Comments Latex Other (See comments),Edema Medium Reaction: ITCHY, SWELLING, , Mold Cough,Sneezing Low 09/30/2023 Medications cholecalcifero l, vitamin D3, (VITAMIN D3 ORAL) Take by mouth Active multivitamin capsule Take 1 capsule by mouth daily Active ascorbic acid (VITAMIN C) 1,000 mg tablet Take 1 tablet (1,000 mg total) by mouth 2 (two) times a day Active cyanocobalamin /folic acid (vitamin U96-gawrv acid) 500-400 mcg tablet Take by mouth Activ e turmeric/turme hemal ext/pepr ext (turmeric-turm stephan ext-pepper) 500-3 mg capsule turmeric 500 mg-black pepper extract 3 mg capsule Active biotin 1 mg capsule Take by mouth And collagen Active Kesimpta Pen 20 mg/0.4 mL pen injectorIndica tions:Multiple sclerosis (HCC) INJECT 20MG SUBCUTANEOUSLY ONCE MONTHLY 0.4 mL 2 Active cyanocobalamin (Vitamin B-12) 2,000 mcg tablet Take 1 tablet (2,000 mcg total) by mouth daily 8 Active modafiniL (PROVIGIL) 200 mg tablet Take 1 tablet (200 mg total) by mouth daily 2 Active CombiPatch 0.05-0.14 mg/24 hr APPLY 1 PATCH TOPICALLY TO THE SKIN 2 TIMES A WEEK 4 Active Active Problems Problem Noted Date Diagnosed Date Vitamin D insufficiency 12/11/2020 Assessment & Plan (12/11/2020 2:35 PM CDT): Continue vitamin-D. Hair loss 12/11/2020 Assessment & Plan (12/11/2020 2:36 PM CDT): I discussed her hair loss. Temporally associated, but clearly related to Kesimpta. Nonetheless, I told her that we could consider switching Kesimpta to Ocrevus if it persists. Lymphopenia 12/11/2020 Emotional instability (CMS/HCC) 03/17/2014 Overview (06/07/2016): Mood swings Migraine 02/28/2013 Overview (06/05/2016): Migraine headache S/P endometrial ablation 10/27/2011 S/P tubal ligation 10/27/2011 Migraines 12/31/2009 Osteoarthritis 12/26/2008 Overview (09/30/2023): Lower back MS (multiple sclerosis) 05/09/2008 Overview (09/30/2023): Multiple sclerosis Diagnosis 2006 DMT history Copaxone 2005-06/2018 Tecfidera 06/2018-04/2020, worsening flushing Kesimpta 04/2020- Assessment & Plan (12/11/2020 2:42 PM CDT): Continue Kesimpta and exercise. We will request her MRI so I can review the images and send the imaging facility her prior MRI and ask for a comparison. Screening for condition 05/09/2008 Overview (09/30/2023): Adult Abstraction Problem List Screening Pap Smear: Result: 12/28/2008,11/2006, 12/13/2007 Negative Mammogram: Result: Not avail in chart Resolved Problems Problem Noted Date Diagnosed Date Resolved Date Vaccine counseling 12/11/2020 Assessment & Plan (12/11/2020 2:34 PM CDT): I recommended she wear a mask when in public spaces, avoid crowded large indoor spaces, maintain social distancing, and practice proper hand hygiene. Surgical History Surgery Date Site/Laterality Comments SECTION 03/02/2004 - 03/01/2005 section TUBAL LIGATION Medical History Medical History Date Comments Migraine Multiple sclerosis (HCC) Family History Medical History Relation Name Comments Migraines Maternal Grandmother Migrain e; Hyperlipidemia Mother Hyperlipidemi a; Lung cancer Other Family history of Cancer, lung; Relation Name Status Comments Maternal Grandmother Mother Other Social History Tobacco Use Types Packs/Day Years Used Date Smoking Tobacco: Never Tobacco Cessation:Counseling Given: Not Answered Alcohol Use Standard Drinks/Week Comments Yes 0 (1 standard drink = 0.6 oz pur e alcohol) Comments No Sex and Gender Information Value Date Recorded Sex Assigned at Not on file Legal Sex Female 2:36 AM WINDOWS SYSTEM ADMIN Gender Identity Female 07/26/2019 11:48 AM CDT Sexual Orientation Straight 11/16/2018 8: 44 PM CDT Obstetrics History Last Filed Vital Signs Vital Sign Reading Time Taken Comments Blood Pressure 119/69 09/30/2023 8:29 AM CDT Pulse 55 09/30/2023 8:29 AM CDT Temperature 36.3 ??C (97.3 ??F) 09/30/2023 8:29 AM CD T Respiratory Rate 16 09/30/2023 8:29 AM CDT Oxygen Saturation 98% 09/30/2023 8:29 AM CDT Inhaled Oxygen Concentration - - Weight 74.4 kg (164 lb) 09/30/2023 8:29 AM CDT Height 165.1 cm (5' 5 ) 09/30/2023 8:29 AM CDT Body Mass Index 27.29 09/30/2023 8:29 AM CDT Plan of Treatment Health Maintenance Due Date Last Done Comments Cervical Cancer Screening 1973 Colon Cancer Screening-Colonoscopy 1975 Depression Screening 1975 Hepatitis C Screening 1973 DTaP/Tdap/Td Vaccine (1 - Tdap) 1984 Hepatitis B Screening 06/01/1991 Regular Well Visit/Exam 18-64 06/01/1991 Breast Cancer Screening-Mammogram 10/24/2022 10/24/2021, 08/30/2020, 08/04/2019, Additional history exists Zoster Vaccine (1 of 2) 06/01/2023 Influenza Vaccine (#1) 2023 Pneumococcal vaccine <65 Aged Out No longer eligible based on patient's age to complete this topic Insurance [facility] AETNA [facility] CHOICE PLUS Care Teams Hot Knife Cutter Relationship Specialty Start Date End Date No, Physician PCP - General 03/16/18
--- OUTSIDE RECORDS SUMMARY | 2024-04-05 09:41 | XMS_ITS | Clinical Summary ---
Author Organization [facility] Address [address] [place] [address] Care Team Providers Care Staff Psychiatrist Name Role Phone Unavailable Primary Care Provider Unavailabl e Allergies Active Allergy Reactions Criticality Noted Date Comments Latex Hives High 10/27/2011 Mold Other (See Comments) 09/27/2021 Medications cholecalcifero l, vitamin D3, 5,000 unit Take 5,000 Units by mouth daily. Active Biotin 10,000 mcg Capsule Take 10,000 mcg by mouth daily. Active ascorbic acid, vitamin C, (VITAMIN C) 1,000 mg Tablet Take 1,000 mg by mouth 2 times daily. Active cyanocobalamin , vitamin B-12, 2,000 mcg Tablet Take 2,000 mcg by mouth daily. Active turmeric/turme hemal ext/pepr ext (turmeric-turm stephan ext-pepper) 500-3 mg Capsule Active modafiniL (PROVIGIL) 200 mg TabletIndicati ons:Relapsing- remitting multiple sclerosis (CMS/HCC),Fati taz, unspecified type Take 1 Tablet (200 mg) by mouth daily. 30 Tablet 2 022 Active Kesimpta Pen 20 mg/0.4 mL Pen InjectorIndica tions:Multiple sclerosis (CMS/HCC) INJECT 20MG SUBCUTANEOUSLY ONCE MONTHLY 0.4 mL 3 025 Active Kesimpta Pen 20 mg/0.4 mL Pen InjectorIndica tions:Multiple sclerosis (CMS/HCC) INJECT 20MG SUBCUTANEOUSLY ONCE MONTHLY 0.4 mL 3 024 2024 Discontinued Active Problems Problem Noted Date Diagnosed Date MS (multiple sclerosis) 10/27/2011 S/P endometrial ablation 10/27/2011 S/P tubal ligation 10/27/2011 Encounters Date Type Department Care Team Description 04/04/2024 Refill [facility] Neurology [address] [place] [address] Jono Stewart MD Multiple sclerosis ([facility]) 03/24/2024 External Device Data ST[facility] ABSTRACTION Provider, Abstract 02/18/2024 1:15 PM PHOTOGRAPHIC TECHNICIAN Office Visit [facility] [place] [address] [place] [address] Jono Stewart MD Relapsing-remitting multiple sclerosis ([facility]) (Primary Dx); Vitamin D insufficiency 01/12/2024 12:30 PM PHOTOGRAPHIC TECHNICIAN Video Visit [facility] [place] [address] [place] [address] Jono Stewart MD ERRONEOUS ENCOUNTER--DISREGARD (Primary Dx) 01/11/2024 Abstract [facility] [place] [address] [place] [address] Provider, Abstract from Last 3 Months Family History Medical History Relation Name Comments Cancer Maternal Grandfather Catarino Cancer Maternal Grandmother Hines Migraines Maternal Grandmother Hines Relation Name Status Comments Maternal Grandfather Catarino Maternal Grandmother Hines Social History Tobacco Use Types Packs/Day Years Used Date Smoking Tobacco: Never Smokeless Tobacco: Never Tobacco Cessation:Counseling Given: Not Answered Alcohol Use Standard Drinks/Week Comments Yes 3 (1 standard drink = 0.6 oz pur e alcohol) Comments No Sex and Gender Information Value Date Recorded Sex Assigned at Not on file Legal Sex Female 6:11 AM PHOTOGRAPHIC TECHNICIAN Gender Identity Not on file Sexual Orientation Not on file Last Filed Vital Signs Vital Sign Reading Time Taken Comments Blood Pressure 100/62 02/18/2024 1:05 PM PHOTOGRAPHIC TECHNICIAN Pulse 67 02/18/2024 1:05 PM PHOTOGRAPHIC TECHNICIAN Temperature - - Respiratory Rate - - Oxygen Saturation 99% 07/21/2023 8:14 AM CDT Inhaled Oxygen Concentration - - Weight 65.8 kg (145 lb) 09/27/2021 10:28 AM CDT Height 158.8 cm (5' 2.5 ) 07/21/2023 8:14 AM CDT Body Mass Index 26.1 09/27/2021 10:28 AM CDT Plan of Treatment Upcoming Encounters Date Type Department Care Team (Late st Contact Info) Description 08/18/2024 12:30 PM CDT Office Visit [facility] Neurology [address] [place] [address] Jono Stewart MD [address] [place] [address] Health Maintenance Due Date Last Done Comments Pre-Diabetes and Diabetes Screening 1973 DTAP/TDAP/TD VACCINES (1 - Tdap) 1992 HEPATITIS B VACCINES (1 of 3 - 19+ 3-dose series) 1992 BREAST CANCER SCREENING 07/22/2015 07/21/2014 COLORECTAL SCREENING 2018 Colorectal Cancer Screening 2018 FIT-DNA Q 3 years 2018 FIT/FOBT Q 1 year 2018 Flex Sig/CT Colonography Q 5 years 2018 ZOSTER VACCINE (1 of 2) 06/01/2023 INFLUENZA VACCINE (#1) 2023 CERVICAL CANCER SCREENING 10/04/20232022, 11/14/2020, 01/28/2016, Additional history exists Procedures Procedure Name Priority Date/Time Associated Diagnosis Comments CERV/VAG CYTO SCREEN PAP RLFX HPV Routine 01/28/2016 9:46 AM PHOTOGRAPHIC TECHNICIAN Well woman exam with routine gynecological exam MAMMO SCREEN BILAT W OR WO CAD Routine 07/21/2014 Routine gynecological examination from Last 3 Months or Most Recently Relevant to Health Maintenance Results * CERV/VAG CYTOPATH, THIN PREP IMAGR RFLX HPV (01/28/2016 9:46 AM PHOTOGRAPHIC TECHNICIAN) CLINICAL INFORMATION SEE COMMENT 02/02/2016 6:14 PM PHOTOGRAPHIC TECHNICIAN [facility] Comment:Information not prov ided LAST MENSTRUAL PERIOD SEE COMMENT 02/02/2016 6:14 PM PHOTOGRAPHIC TECHNICIAN [facility] Comment:INFORMATION NOT PROV IDED PREV PAP: SEE COMMENT 02/02/2016 6:14 PM PHOTOGRAPHIC TECHNICIAN [facility] Comment:INFORMATION NOT PROV IDED PREV BX: SEE COMMENT 02/02/2016 6:14 PM PHOTOGRAPHIC TECHNICIAN [facility] Comment:INFORMATION NOT PROV IDED SOURCE Endocervix 02/02/2016 6:14 PM PHOTOGRAPHIC TECHNICIAN [facility] ADEQUACY: SEE COMMENT 02/02/2016 6:14 PM PHOTOGRAPHIC TECHNICIAN [facility] Comment: Satisfactory for evaluation. Endocervical/transformation zone component present. PAP INTERP SEE COMMENT 02/02/2016 6:14 PM PHOTOGRAPHIC TECHNICIAN [facility] Comment:Negative for intraep ithelial lesion or malignancy. COMMENT SEE COMMENT 02/02/2016 6:14 PM PHOTOGRAPHIC TECHNICIAN [facility] Comment: This Pap test has been evaluated with computer assisted technology. AIR QUALITY SPECIALIST: SEE COMMENT 2015 6:14 PM PHOTOGRAPHIC TECHNICIAN [facility] Comment: MLK, CT(ASCP) CT screening location: [place] [address] Administration [place] [address] Genital SWAB OF ENDOCERVIX / Unknown Collection / Unknown 01/28/2016 9:46 AM PHOTOGRAPHIC TECHNICIAN 01/28/2016 8:39 PM PHOTOGRAPHIC TECHNICIAN Narrative [facility] - 02/02/2016 6:14 PM PHOTOGRAPHIC TECHNICIAN Performing Organization Information: ?Site ID: ?Name[facility] ?Address: [facility] Administration [place] [address] ?Director: Stephanie Ceballos MD us Abdulaziz Miller MD PATHOLOGY/CYTOLOGY ORDERABLES Fi nal Result [facility] * MAMMO DIGITAL SCREEN BILAT (07/21/2014) Anatomical Region Laterality Modality Breast Bilateral Other us Abdulaziz Miller MD MAMMO ORDERABLES Final Result from Last 3 Months or Most Recently Relevant to Health Maintenance Insurance [facility] [id number]
--- OUTSIDE RECORDS SUMMARY | 2024-04-05 09:41 | XMS_ITS | Encounter Summary ---
Author Organization [employer] [facility] Address [address] [place] [address] Care Team Providers Care Policy Change Clerk Name Role Phone Unavailable Primary Care Provider Unavailabl e Reason for Visit * Reason Comments Med Refill Encounter Details Date Type Department Care Team (Late st Contact Info) Description 04/04/2024 Refill [facility] Neurology [address] [place] [address] Jono Stewart MD [address] [place] [address] Multiple sclerosis ([facility]) Social History Tobacco Use Types Packs/Day Years Used Date Smoking Tobacco: Never Smokeless Tobacco: Never Alcohol Use Standard Drinks/Week Comments Yes 3 (1 standard drink = 0.6 oz pur e alcohol) Comments No Sex and Gender Information Value Date Recorded Sex Assigned at Not on file Legal Sex Female 6:11 AM THERAPEUTIC DIETITIAN Gender Identity Not on file Sexual Orientation Not on file documented as of this encounter Miscellaneous Notes * Telephone Encounter - Amanda SullivanESTER - 04/04/2024 2:33 PM CST Recent Visits Date Type Provider Dept 02/18/24 Office Visit Jono Stewart MD [facility] [place] [address] 07/21/23 Office Visit Jono Stewart MD [facility] [place] [address] Showing recent visits within past 540 days with a meds authorizing provider and meeting all other requirements Future Appointments Date Type Provider Dept 08/18/24 Appointment Jono Stewart MD [facility] [address] Showing future appointments within next 150 days with a meds authorizing provider and meeting all other requirements Last Ordered: 10.15.24 0.4 x 3 APEUTIC DIETITIAN documented in this encounter Plan of Treatment Upcoming Encounters Date Type Department Care Team (Late st Contact Info) Description 08/18/2024 12:30 PM CDT Office Visit [facility] Neurology [address] [place] [address] Jono Stewart MD [address] [place] [address] documented as of this encounter Visit Diagnoses Diagnosis Multiple sclerosis (CMS/HCC) Multiple sclerosis documented in this encounter
--- OUTSIDE RECORDS SUMMARY | 2024-04-05 09:41 | XMS_ITS | Referral Summary ---
Author Organization [facility] Address [address] [place] [address] Care Team Providers Care Hydrochloric Manufacturing Supervisor Name Role Phone No, Physician Primary Care Provider [phone] Allergies Active Allergy Reactions Criticality Noted Date [...] a day Active cyanocobalamin /folic acid (vitamin N68-kgyam acid) 500-400 mcg tablet Take by mouth [...] social distancing, and practice proper hand hygiene. Social History Tobacco Use Types Packs/Day Years Used Date Smoking Tobacco: Never Tobacco Cessation:Counseling Given: Not Answered Alcohol Use Standard Drinks/Week Comments Yes 0 (1 standard drink = 0.6 oz pur e alcohol) Comments No Sex and Gender Information Value Date Recorded Sex Assigned at Not on file Legal Sex Female 2:36 AM ACCOUNT CLASSIFICATION CLERK Gender Identity Female 07/26/2019 11:48 AM CDT Sexual Orientation Straight 11/16/2018 8: 44 PM CDT Last Filed Vital Signs Vital Sign Reading [...] 09/30/2023 8:29 AM CDT Plan of Treatment Not on file Insurance [employer] [facility] CHOICE PLUS [facility] HMO/PPO Address: [address] [address] [place] [address] [facility] AETNA [facility] CHOICE PLUS [facility] H[facility]/PPO Address: [place] [address] Care Teams Hydrochloric Manufacturing Supervisor Relationship Specialty Start Date End Date No, Physician PCP - General 03/16/18
== END 2024-04-05 09:06 | disposition home or self-care (01) ==
PROVIDERS: Visit Provider Obstetrics & Gynecology
DX: Z12.31 Encounter for screening mammogram for malignant neoplasm of breast (principal)
CPT/HCPCS: 77063; 77067

== ENCOUNTER 2024-09-12 07:09 | Day surgery (SDC) | payer OTHER, SELFPAY ==
[2024-03-21 09:23] VITALS: BMI 29.2
--- OUTSIDE RECORDS SUMMARY | 2024-09-12 07:40 | XMS_ITS | Referral Summary ---
Author Organization [facility] Address [address] [place] [address] Care Team Providers Care Flow Floor Attendant Name Role Phone No, Physician Primary Care Provider [phone] Allergies Active Allergy Reactions Criticality Noted Date [...] a day Active cyanocobalamin /folic acid (vitamin C73-voxdq acid) 500-400 mcg tablet Take by mouth [...] if it persists. Lymphopenia 12/11/2020 Emotional instability 03/17/2014 Overview (06/07/2016): Mood swings Migraine 02/28/2013 [...] on file Legal Sex Female 2:36 AM WOOD CLUB NECK WHIPPER Gender Identity Female 07/26/2019 11:48 AM CDT Sexual Orientation Straight 11/16/2018 8: 44 PM CDT Last Filed Vital Signs Vital Sign Reading Time Taken Comments Blood Pressure 119/69 09/30/2023 8:29 AM CDT Pulse 55 09/30/2023 8:29 AM CDT Temperature 36.3 C (97.3 F) 09/30/2023 8:29 AM CDT Respiratory Rate 16 09/30/2023 8:29 AM CDT Oxygen Saturation 98% 09/30/2023 8:29 AM CDT Inhaled Oxygen Concentration - - Weight 74.4 kg (164 lb) 09/30/2023 8:29 AM CDT Height 165.1 cm (5' 5) 09/30/2023 8:29 AM CDT Body Mass Index 27.29 09/30/2023 8:29 AM CDT Plan of Treatment Not on file Insurance [employer] [facility] CHOICE PLUS [facility] HMO/PPO Address: [address] [address] [place] [address] [facility] AETNA [facility] CHOICE PLUS [facility] H[facility]/PPO Address: [place] [address] Care Teams Flow Floor Attendant Relationship Specialty Start Date End Date No, Physician PCP - General 03/16/18
--- OUTSIDE RECORDS SUMMARY | 2024-09-12 07:40 | XMS_ITS | Encounter Summary ---
Author Organization [facility] Address [address] [place] [address] Care Team Providers Care Power Plant Inspector Name Role Phone Laly Alonso DO Primary Care Provide r Abdulaziz Miller MD Unavailable None, Pcp Primary Care Provider Unavailabl e Abdulaziz Miller MD Primary Care Provider Laly Alonso DO Primary Care Provide r Encounter Details Date Type Department Care Team (Late st Contact Info) Description 08/22/2010 [facility] Abdulaziz Miller MD [address] [place] [address] Social History Tobacco Use Types Packs/Day Years Used Date Smoking Tobacco: Never Alcohol Use Standard Drinks/Week Comments Yes 0 (1 standard drink = 0.6 oz pur e alcohol) 1x weekly Comments No Sex and Gender Information Value Date Recorded Sex Assigned at Not on file Legal Sex Female 6:02 AM PHOTOCOPYING EQUIPMENT MECHANIC Gender Identity Not on file Sexual Orientation Not on file documented as of this encounter Plan of Treatment Not on file documented as of this encounter Visit Diagnoses Not on filedocumented in this encounter Care Teams Power Plant Inspector Relationship Specialty Start Date End Date Laly Alonso DO [address] [place] [address] PCP - General 05/09/08 09/03/12 Abdulaziz Miller MD [address] [place] [address] PCP - OBGYN 12/26/08 None, Pcp [place] [address] PCP - General 09/04/12 05/24/13 Abdulaziz Miller MD [address] [place] [address] PCP - General Obstetrics and Gynecology 08/31/1303/02 Laly Alonso DO [address] [place] [address] PCP - General 03/03/19 documented as of this encounter
--- OUTSIDE RECORDS SUMMARY | 2024-09-12 07:40 | XMS_ITS | Clinical Summary ---
Author Organization [facility] Address [address] [place] [address] Care Team Providers Care Accounting Professor Name Role Phone No, Physician Primary Care Provider [phone] Allergies Active Allergy Reactions Criticality Noted Date [...] a day Active cyanocobalamin /folic acid (vitamin S56-ipdtt acid) 500-400 mcg tablet Take by mouth [...] on file Legal Sex Female 2:36 AM DONOR SPECIALIST Gender Identity Female 07/26/2019 11:48 AM CDT [...] Vaccine (1 of 2) 06/01/2023 Influenza Vaccine (Season Ended) 2024 Pneumococcal vaccine <65 Aged Out No longer eligible based on patient's age to complete this topic Insurance [facility] CHOICE PLUS Care Teams Accounting Professor Relationship Specialty Start Date End Date No, Physician PCP - General 03/16/18
--- OUTSIDE RECORDS SUMMARY | 2024-09-12 07:40 | XMS_ITS | Data Portability ---
Author Organization [facility], [place] Address [address] [place] [address] Assessment Encounter Date Assessment Date Assessment LastModified by Organization Details LastModified Time 11/14/2020 11/14/2020 Annual gynecological exam performed. Patient will come back in a year unless there are new symptoms. Not available 11/14/2020 11:57:26 10/03/2022 10/03/2022 Annual gynecological exam performed. Patient will come back in a year unless there are new symptoms. Not available 10/03/2022 13:07:02 02/29/2024 02/29/2024 Annual gynecological exam performed. Patient will come back in a year unless there are new symptoms. [email or web address] Not available 02/29/2024 10:15:07 Plan of Treatment Reminders Order Date Submit Date Provider Last Modified By Organization Details Last Modified Time Details Appointments None recorded. Lab estradiol, serum 2022 023 [facility] (Lab), [address] , [place], [address], 3 03:47:09 lh + FSH, serum 2022 023 [facility] (Lab), [address], [place], [address], 3 03:47:10 Referral gastroenter ologist referral 2023 024 [facility], [id number], [place], [address], 5 05:00:57 Procedures None recorded. Surgeries None recorded. Imaging MAMMO, screening, digital, bilateral 2023 024 [facility], [address], [place], [address], 5 05:00:57 MAMMO, screening, bilateral [address] [facility], [address], [place], [address], 3 14:46:29 US, pelvis, complete [address] [facility] [address], [place], [address], 3 14:46:28 Medication Orders estradiol 1 mg tablet 2023 024 [id number], [address], [place], [id number], 4 10:18:53 progesteron e micronized 200 mg capsule 2023 024 [facility], [address], [place], [id number], 4 10:19:19 CombiPatch 0.05 mg-0.14 mg/24 hr transdermal 2023 024 [facility], [address], [place], [id number], 4 10:01:29 Patient TargetsNo targets recorded. Patient InstructionsNo instructions recorded. 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 for Screening for malignant neoplasm of colon Referring Physician: Sunita Washington, DRYING OVEN ATTENDANT, Encounter Date: 02/29/2024 Results Created Date Observation Date Name Description Value Unit Range Abnormal Flag Note LastModifiedBy Organization Detail LastModifiedTime 11/15/1911/14/2020 IMAGE GUIDE D PAP AND HPV REGAR DLESS image guided Pap, HPV regardless of Pap result SEE RESULT S BELOW CASE REPOR T: Cytol ogy Gynec ologi elizabeth Repor t Case: [id number] Autho aldo jenny Provi angela: Kashif Hope Colle cted: 11/14 1427 FILENET P8 DEVELOPER Order ing Locat ion: [place] Patho logy Recei anusha: 11/15 0005 First Scree n: Justo Dixon , CT Speci men: Scree armando Pap - Image d, Cervi x STATE MENT OF ADEQU ACY: Satis facto ry for evalu ation Trans forma tion zone compo nent prese nt FINAL DIAGN OSIS: Negat jannie for Intra epith elial Gillian medrano or Kaushik lucero (NIL) Elect elsa grajeda marva d by Justo Dixon , CT on 2020 at 1:58 PM ----- ----- ----- ----- ----- ----- ----- ----- ----- ----- ----- ----- ----- ----- ----- ----- ----- ---- HPV RESUL TS: HPV mRNA E6/E7 : No HPV mRNA Detec marybel NOTE: This high risk HPV mRNA assay detec ts fourt een high- risk HPV types (16, 18, 31, 33, 35, 39, 45, 51, 52, 56, 58, 59, 66, 68) witho ut diffe renti ation . COMME NT: Note: Slide scree amelia karlos llcallie due to rejec tion by the Thinp rep Imagi ng Syste m. [facility] INFOR MATIO N: Menst rual Statu s: LMP (if appli cable ): 2020 Clini [facility] Histo ry/Pr eviou s Pap: Type of Neopl carlos (if appli cable ): Signi fican t Clini elizabeth Findi ngs: Other Histo ry: Hormo radha (if appli cable ): PAP EDUCA LICHA L NOTE: The Pap Test is a scree armando test with an inher ent false negat jannie rate. Liqui d-bas e sampl ing may decre ase, but will not elimi mercy, false negat jannie resul ts. A negat jannie resul t does not precl ude the prese nce and/o r devel opmen t of disea se, since the prese nce of abnor mal cells in the sampl e depen ds on the locat ion of the lesio n and sampl ing techn ique. Lenka nued regul ar scree armando is the best metho d of cance r preve ntion . If repor marybel cytol ogic findi ng do not corre late with physi elizabeth and/o r histo rical findi ngs, furth er inves tigat ion is recom julia d, as clini roopa warra nted. Not Available [facility] (Lab) [address] [facility], [place], [address], 11/18/2020 15:00:03 10/04/19 23 10/03/2022 ESTRA DIOL estradiol 25.0 pg/mL This assay was perfo rmed using [employer] ratio n reage nts and test kits. Value s obtai amelia with other assay metho ds or kits canno t be used inter jarvis eably . Femal e Estra diol Range s: Folli cular phase 12.4- 233 pg/mL Ovula tion phase 41.0- 398 pg/mL Lutea l phase 22.3- 341 pg/mL Postm enopa usal< 5-138 pg/mL Healt hy Pregn ant Women 1st Trime ster1 54-32 43 pg/mL 2nd Trime ster1 561-2 1280 pg/mL 3rd Trime ster8 525-> 97995 pg/mL Not Available [facility] (Lab) [address] [facility] [facility], [place], [address], 10/04/2022 03:47:09 10/04/19 23 10/03/2022 FSH / LH FSH 112.0 mIU/m L This assay was perfo rmed using [employer] ratio n reage nts and test kits. Value s obtai amelia with other assay metho ds or kits canno t be used inter jarvis eably . Femal es Folli cular : 3.5-1 2.5 mIU/m L Ovula tion: 4.7-2 1.5 mIU/m L Lutea l: 1.7-7 .7 mIU/m L Postm enopa use: 25.8- 134.8 mIU/m L Not Available [facility] (Lab) [address] [facility], [place], [address], 10/04/2022 03:47:10 10/04/19 23 10/03/2022 FSH / LH LH 95.9 mIU/m L This assay was perfo rmed using [employer]s [employer] Corpo ratio n reage nts and test kits. Value s obtai amelia with other assay metho ds or kits canno t be used inter jarvis eadewey . Femal es Mid-F ollic ular: 2.4-1 2.6 mIU/m L Mid-C ycle: 14.0- 95.6 mIU/m L Mid-L uteal : 1.0-1 1.4 mIU/m L Postm enopa use: 7.7-5 8.5 mIU/m L Not Available [facility] (Lab) [address] [place], [address], 10/04/2022 03:47:10 10/04/19 23 10/03/2022 IMAGE GUIDE D PAP AND HPV REGAR DLESS image guided Pap, HPV regardless of Pap result SEE RESULT S BELOW CASE REPOR T: Cytol ogy Gynec ologi elizabeth Repor t Case: [id number] Autho aldo alvraado Provi angela: Kashif Hope Colle cted: 10/03 1323 FILENET P8 DEVELOPER Order ing Locat ion: [place] Patho logy Recei anusha: 10/04 0211 First Scree n: Gale Gupta, CT Rescr een: Justo Dixon , CT Speci men: Scree armando Pap - Image d, Cervi x STATE MENT OF ADEQU ACY: Satis facto ry for evalu ation Trans forma tion zone compo nent prese nt FINAL DIAGN OSIS: Negat jannie for Intra epith elial Lesio n or Mandeepgillian nic (NIL) . Elect elsa grajeda marva d by Justo Dixon , CT on 023 at 12:55 PM ----- ----- ----- ----- ----- ----- ----- ----- ----- ----- ----- ----- ----- ----- ----- ----- ----- ---- HPV RESUL TS: HPV mRNA E6/E7 : No HPV mRNA Detec marybel NOTE: This high risk HPV mRNA assay detec ts fourt een high- risk HPV types (16, 18, 31, 33, 35, 39, 45, 51, 52, 56, 58, 59, 66, 68) witho ut diffe renti ation . COMME NT: This speci men was revie wed by a Cytot echno logis t and/o r Patho logis t (as indic ated in this repor t) after evalu ation using the Thinp rep Imagi ng Syste m. [facility] INFOR MATIO N: Menst rual Statu s: LMP (if appli cable ): Clini elizabeth Histo ry/Pr eviou s Pap: Type of Neopl carlos (if appli cable ): Signi fican t Clini elizabeth Findi ngs: Other Histo ry: Hormo radha (if appli cable ): PAP EDUCA LICHA L NOTE: The Pap Test is a scree armando test with an inher ent false negat jannie rate. Liqui d-bas ed sampl ing may decre ase, but will not elimi mercy, false negat jannie resul ts. A negat jannie resul t does not precl ude the prese nce and/o r devel opmen t of disea se, since the prese nce of abnor mal cells in the sampl e depen ds on the locat ion of the lesio n and sampl ing techn ique. Lenka nued regul ar scree armando is the best metho d of cance r preve ntion . If repor marybel cytol ogic findi ng do not corre late with physi elizabeth and/o r histo rical findi ngs, furth er inves tigat ion is recom julia d, as clini roopa ballard nted. Not Available [facility] (Lab) [address] [facility], [place], [address], 10/06/2022 13:59:30 10/25/19 22 MAMMO , scree armando, bilat eral No observ ation record ed. [email or web address] Not Available 2022 11:58:16 04/05/19 25 04/05/2024 MAMMO , scree armando, bilat eral No observ ation record ed. tabner[address] [place] [address] [address] [facility] [address], [place], [address], 04/05/2024 17:13:19 Result Notes None recorded. Problems Name Problem SNOMED Code Status Onset Date Resolution Date Notes Provider Name and Address Organization Details Recorded Time SNOMED CT Concept Completed 201811/13/2020 Encntr for buckle and button maker exam (general) (routine) w/o abn findings;R ecorded Elsewhere: No Locatio n: [facility] Micheline rce: EHR Chroni c: N Practice ID: [id number] Billa ble Time: 09:45:00 AM Migdalia roach [facility] 1 14:46:56 Problem Notes None recorded. Procedures Surgical History Date Name Laterality Status Provider Name and Address Organization Details Recorded Time 3 Date of Last Pap Smear completed Bhumi Church [facility] 08/26/2023 09:31:19 2 Date of Last Mammogram completed Arelis Lozoya [facility] 10/03/2022 13:08:20 1 Other completed Suzie Saldaña [facility] 10/26/2019 13:00:54 5 delivery completed [facility] 02/29/2024 10:23:31 Tubal Ligation completed [facility] 02/29/2024 10:24:01 Imaging Results None recorded. Procedure Notes None recorded. Medical Equipment None Reported. Allergies Allergen ID Allergen Name Allergen Category Reaction Reaction Severity Criticality Documentation Date Start Date Code Code System Note Provider Name and Address Organization Details Recorded Time 1843 latex environme nt,medica tion Not available Not available Not available 10/26/2019 [address] [facility] 0 12:44:09 1844 mold extract environme nt Not available Not available Not available 10/26/2019 [address] [facility] 0 12:59:14 Medications Name Sig Start Date Stop Date Status Note LastModified by Organization Details LastModified Time CombiPatc h 0.05 mg-0.14 mg/24 hr transderm al APPLY A PATCH TO THE SKIN TWICE A WEEK 11/22 completed Not Available Not Available Not Available benzonata te 200 mg capsule 01/16 completed Not Available Not Available Not Available B Complex-V itamin B12 tablet active Not Available Not Available Not Available estradiol 1 mg tablet TAKE 1 TABLET BY MOUTH EVERY DAY 02/28 completed Not Available Not Available Not Available ciproflox acin 0.3 % eye drops INSTILL 1 GTT IN OD TID FOR 5 DAYS 11/13 completed Not Available Not Available Not Available progester one micronize d 200 mg capsule TAKE 1 CAPSULE BY MOUTH EVERY DAY 02/28 completed Not Available Not Available Not Available doxycycli ne hyclate 100 mg tablet 01/16 completed Not Available Not Available Not Available amoxicill in 875 mg-potass ium clavulana te 125 mg tablet TAKE 1 TABLET BY MOUTH TWICE DAILY FOR 10 DAYS 11/22 completed Not Available Not Available Not Available Vitamin C active Not Available Not Julianne ilable Not Available biotin active Not Available Not Availa ble Not Available Vitamin D active Not Available Not Julianne ilable Not Available modafinil 02/28 completed Not Available Not Available Not Available Vitamin 02/28 completed Not Available Not Available Not Available Tecfidera 240 mg capsule,d elayed release 11/14 completed Not Available Not Available Not Available Tecfidera 11/13 completed Not Available Not Available Not Available Copaxone 20 mg/mL subcutane ous syringe inject 1 millilit er by subcutan eous route every day in abdomen, thigh, hip, outer area of upper buttock or upper arm rotating sites 11/14 completed Prescrib ed Vivien e: Yes Loca tion: [facility] M odify By: julianne Young ncounter DateTime : 03/09/19 08:30:00 AM Not Available Not Available Not Available turmeric 500 mg-black pepper extract 3 mg capsule 08/25 completed Not Available Not Available Not Available ABDEK Multivita min 1,000 unit-800 mcg capsule active Not Available Not Available Not Available turmeric active Not Available Not Avai lable Not Available Kesimpta Pen 20 mg/0.4 mL subcutane ous pen injector active Not Available Not Available Not Available Vitals Date Recorded Body height Body mass index (BMI) Body weight Systolic And Diastolic Provider Name and Address Organization Details Last Updated DateTime 08/26/2023 158.75 cm 29.9 kg/m2 18515.33 g 102/62 mm[Hg] Bhumi Church [facility] 08/26/2023 09:29:00 Date Recorded Body height Body mass index (BMI) Body weight Systolic And Diastolic Provider Name and Address Organization Details Last Updated DateTime 10/03/2022 158.75 cm 27.2 kg/m2 23177.45 g 118/71 mm[Hg] Arelis Lozoya [facility] 10/03/2022 13:07:34 Date Recorded Body height Body mass index (BMI) Body weight Systolic And Diastolic Provider Name and Address Organization Details Last Updated DateTime 11/14/2020 158.75 cm 26.5 kg/m2 47733.08 g 126/75 mm[Hg] Migdalia Sammy [facility] 11/14/2020 11:58:00 Date Recorded Body height Body mass index (BMI) Body weight Systolic And Diastolic Provider Name and Address Organization Details Last Updated DateTime 11/23/2023 158.75 cm 28.3 kg/m2 49933 g 106/69 mm[Hg] Bhumi Church [facility] 11/23/2023 09:35:01 Date Recorded Systolic And Diastolic Provider Name and Address Organization Details Last Updated DateTime 02/29/2024 120/70 mm[Hg] MADELEINE Rodriguez [address], [place], [address], [facility] 02/29/2024 10:29:27 Date Recorded Body height Body mass index (BMI) Body weight Provider Name and Address Organization Details Last Updated DateTime 02/29/2024 158.75 cm 29.2 kg/m2 25796.68 g Miryam Whitmore [facility] 02/29/2024 10:17:49 Social History Question Answer Notes LastModified by Organizat ion Details LastModified Time Tobacco Smoking Status Never Smoker Arelis roach, [facility] 10/03/2022 13:07:54 How Many Years Have You Consumed Alcohol? 31 Information not available 11/14/2020 Are You Blind Or Do You Have Difficulty Seeing? No Information n ot available 11/14/2020 What Is Your Level Of Caffeine Consumption? Heavy Information not available 11/14/2020 How Much Tobacco Do You Chew? None Information not available 11/14/2020 In The 14 Days Before Symptom Onset, Have You Had Close Contact With A Laboratory-confirm ed COVID-19 While That Case Was Ill? No Information n ot available 11/14/2020 In The 14 Days Before Symptom Onset, Have You Had Close Contact With A Person Who Is Under Investigation For COVID-19 While That Person Was Ill? No Information not available 11/14/2020 Have You Been To An Area Known To Be High Risk For COVID-19? No Information not available 11/14/2020 Are You Deaf Or Do You Have Serious Difficulty Hearing? No Information not available 11/14/2020 What Type Of Diet Are You Following? REGULAR Information n ot available 11/14/2020 What Is The Highest Grade Or Level Of School You Have Completed Or The Highest Degree You Have Received? [id number] Information not available 11/14/2020 Are There Any Guns Present In Your Home? Yes [email or web address] Information not available 11/23/2023 Do You Use Protection During Sex? No [email or web address] Information not available 11/23/2023 Do You Use Your Seat Belt Or Car Seat Routinely? Yes Information not available 11/14/2020 Do You Have Smoke And Carbon Monoxide Detectors In Your Home? Yes Information not available 10/03/2022 How Much Tobacco Do You Smoke? No Information not available 11/14/2020 Do You Use Sunscreen Routinely? Yes [email or web address] Information not available 11/23/2023 Have You Used IV Drugs? No Information not available 11/14/2020 Do You Have Difficulty Walking Or Climbing Stairs? No [email or web address] Information not available 08/26/2023 Sex: Unknown Functional Status Question Answer Note LastModified by Organizat ion Details LastModified Time Do you use any illicit or recreational drugs? No Information not available 11/14/2020 What is your level of alcohol consumption? Occasional [email or web address] Information not available 10/26/2019 Are you able to walk? [email or web address] Information not available 11/14/2020 Are you able to care for yourself? 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 No [email or web address] Information not available 08/26/2023 What is your exercise level? Moderate [email or web address] Information not available 11/23/2023 Mental Status Question Answer Note LastModified by Organization D etails LastModified Time Do you feel stressed (tense, restless, nervous, or anxious, or unable to sleep at night)? [id number] [email or web address] Information not available 02/29/2024 Family History Relationship Description Onset Age of this Age Resolved Age Notes LastModified by Organization Details LastModified Time Mother Hyperchrolando [email or web address] Not available 2019 12:43:11 Paternal Grandmother Heart disease jgumber Not available 2019 12:43:24 Paternal Grandmother Mental disorder psychi atric diseas e jgumber Not available 10/26/2019 12:44:00 Maternal Grandmother Malignant neoplasm of lung jgumber Not available 2019 12:43:42 Maternal Grandfather Malignant neoplasm of lung jgumber Not available 2019 12:43:42 Paternal Grandfather Malignant neoplasm of lung jgumber Not available 2019 12:43:42 Medical History Condition Response Other N Blood Transfusion N Dermatologic Disorders N Gestational Diabetes N Anxiety Disorder N Autoimmune disease Y Arthritis N Polyps N Infertility N Acid Reflux (GERD) N Cancer N Varicosities N Stroke N Neurologic/Epilepsy N Fibromyalgia N Headaches N Kidney Disease N Heart Problems N Kidney or Bladder Problems N Eating Disorder N Art (IVF or FET) N Hepatitis/Liver Disease N No Past Medical History N Urinary Tract Infection N Asthma N Trauma/Violence N Thrombophilias N Allergies (Food, seasonal, environmental ) N Breast Cancer N Drug/Latex Allergies/Reactions N Lung Disease N Defects or Inherited Disease N Breast Problem N Hematologic disorders N Anesthesia Complications N History of STI N Deep Vein Thrombosis N Polycystic ovary syndrome N History of abnormal pap N Endometriosis N High Cholesterol N Thyroid Problems N GI Problems N Anemia N Psychiatric Illness N Ovarian Cancer N Diabetes N Pulmonary (TB, Asthma) N Eczema N Abuse/Domestic Violence N Depression/ depression N Heart Disease N Pre-Eclampsia N Hypertension N Osteoporosis N Gynecological History Statement/Question Response Abnormal Pap N Date of Last Mammogram 10/24/2021 Date of LMP On BCP's at Conception? N N Was last menstrual period normal Y STIs/STDs N HPV Vaccine N Current Control Method Tubal Ligat ion Age at First Child 29 If Post Menopausal, Age at Menopause 46 Are cycles usually normal Y Sexually Active? Y Menses Monthly N Age of first menstrual cycle 11 Date of Last Pap Smear 10/03/2022 Sexual Problems? N N Obstetrics History GPAL:G 1 P 0 0 0 1 Type Value Living 1 Total 1 Past Encounters Encounter ID Performer Location Encounter Start Date Encounter Closed Date Diagnosis/Indication Diagnosis SNOMED-CT Code Diagnosis ICD10 Code Diagnosis Note [id number] Kalie Maurice , [facility] [address] [address] 10/26/2019 12:45:52 10/26/2019 13:30:50 Gynecologic examination [id number] Z01.419 Suggested Calcium with Vitamin D 1200-1500m g daily. Patient advised to get an annual flu shot in the fall and she could obtain at [facility] or [facility] clinic. Also to obtain TDap vaccinatio n if you have not had one in the last 10 years. Recommend yearly mammograms . Encouraged monthly self breast exams. Encourage safe sexual practices, to use condoms and limit partners if not already in a monogamous relationsh ip. Engage in daily exercise of low impact aerobic exercise 45-60 minutes 4-5 times weekly. Avoid tobacco and illicit drugs as well as using moderation with alcohol intake less than 1-2 8 oz beverages daily. This lifestyle behavior pattern will lead to less health conditions and longer life span. If BMI greater than 25 weight watchers or dietary consult advised. All questions have been answered. Patient appears to understand informatio n, but if you have any questions please call or respond to this email. Pap/HPV deferred with normal Hx pap/hpv, monogamous relationsh ip. Abnormal u terine bleeding [id number] 9100 N93.9 Hx of We agreed to start with lab work since exam was wnl & only a couple instances of intermenst rual spotting or tail end period spotting. She will continue to track her menses. If the next 2-3mos continues to have intermenst rual spotting & labs are wnl we discussed pursuing a pelvic US. F/U in 2-3mos for AUB. [id number] Kalie Maurice , [facility] [address] [address] 01/17/2020 10:22:56 01/17/2020 12:14:59 Abnormal uterine bleeding [id number] 9100 N93.9 We agreed to today to continue to keep menstrual diary. If AUB begins to recurr she will contact office for TVUS w/ OV. As of today, feels periods are back on track. Lab reviewed & wNL. Time spent in visit is a total of 15 mins with at least 50% of visit consisting of counseling and review of plan of care. [id number] Kalie Maurice , [facility] [address] [address] 11/14/2020 11:40:28 11/15/2020 13:45:05 Gynecologic examination [id number] Z01.419 Suggested Calcium with Vitamin D 1200-1500m g daily. Patient advised to get an annual flu shot in the fall and she could obtain at [facility] or [facility] care clinic. Also to obtain TDap vaccinatio n if you have not had one in the last 10 years. Recommend yearly mammograms . Encouraged monthly self breast exams. Encourage safe sexual practices, to use condoms and limit partners if not already in a monogamous relationsh ip. Engage in daily exercise of low impact aerobic exercise 45-60 minutes 4-5 times weekly. Avoid tobacco and illicit drugs as well as using moderation with alcohol intake less than 1-2 8 oz beverages daily. This lifestyle behavior pattern will lead to less health conditions and longer life span. If BMI greater than 25 weight watchers or dietary consult advised. All questions have been answered. Patient appears to understand informatio n, but if you have any questions please call or respond to this email. Pap/HPV deferred with normal Hx pap/hpv, monogamous relationsh ip.STD declinedMa mmo done wnlNo other issues or concerns [id number] Kalie Maurice , [facility] [address] [address] 10/03/2022 12:59:36 10/03/2022 14:46:28 Gynecologic examination [id number] Z01.419 Z11.51 Suggested Calcium with Vitamin D 1200-1500m g daily. Patient advised to get an annual flu shot in the fall and she could obtain at [facility] or [facility] care clinic. Also to obtain TDap vaccinatio n if you have not had one in the last 10 years. Recommend yearly mammograms . Encouraged monthly self breast exams. Encourage safe sexual practices, to use condoms and limit partners if not already in a monogamous relationsh ip. Engage in daily exercise of low impact aerobic exercise 45-60 minutes 4-5 times weekly. Avoid tobacco and illicit drugs as well as using moderation with alcohol intake less than 1-2 8 oz beverages daily. This lifestyle behavior pattern will lead to less health conditions and longer life span. If BMI greater than 25 weight watchers or dietary consult advised. All questions have been answered. 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 [id number] GIANNA Rodriguez [facility] [address] [address] 08/26/2023 09:23:05 08/26/2023 14:20:39 Hormone replacement therapy [id number] Z79.890 Discussed management options for hot flashes/ni ght sweatshorm onal vs non-hormon al methods discussed, R/B/A reviewedNA MS menonote handout given to patientopt s to start transderma l HRTrx sent for combipatch she is aware of the risk and benefits, questions answeredsh e will update her neurologis tmed check in 3 months Time spent in visit is a total of 30 mins with at least 50% of visit consisting of counseling and review of plan of care.We discussed Menopausal Hormone therapy (MHT) for women with intact uterus with the goals of reliving vaso-motor sx's using estrogen/p rogestin therapy (EPT) using lowest doses for shortest duration in women 40-59yo. Contraindi cations include: Hx of DVT or thrombolic events, Hx of breast cancer, known CHD, active liver disease, unexplaine d vag bleeding, high risk endometria l cancer, TIA. Side effects can include but are not limited to: Irregular vag bleeding,, breast tenderness , nausea, weight changes, libido changes, nausea. Adverse Rxn possible: Elevated BP migraine w/ visual changes, breast cancer dx, OR/stroke, DVT/PE, Endometria l cancer. Please contact office with any new or worsening side effects or adverse reactions. Or if a medical emergency please go to nearest ED/[facility] for further evaluation . Menopausal flushing [id number] N95.1 [id number] MAAME MIXON MD [facility] [address] [address] 11/23/2023 09:22:15 11/23/2023 10:21:07 Menopausal syndrome [id number] N95.9 We discussed Menopausal Hormone therapy (MHT) for women with intact uterus with the goals of reliving vaso-motor sx's using estrogen/p rogestin therapy (EPT) using lowest doses for shortest duration in women 40-59yo. Contraindi cations include: Hx of DVT or thrombolic events, High cholestero l, Hx of breast cancer, known CHD, active liver disease, unexplaine d vag bleeding, high risk endometria l cancer, TIA. Side effects can include but are not limited to: Irregular vag bleeding,, breast tenderness , nausea, weight changes, libido changes, nausea. Adverse Rxn: Elevated BP migraine w/ visual changes, breast cancer dx, OR/stroke, DVT/PE, Endometria l cancer. Please contact office with any new or worsening side effects or adverse reactions. Or if a medical emergency please go to nearest ED/[facility] for further evaluation . - will transition to PO estrogen and progestero ne; discussed slightly increased risk of VTE with PO vs transderma l route- rtc 4 months for med check [id number] GIANNA Rodriguez [facility] [address] [address] 02/29/2024 09:58:54 02/29/2024 12:09:53 Gynecologic examination [id number] Z01.419 WWEpostmen opausalPap - UTD, not indicated todaySTI screen - declinedMa mmogram - order givenColon cancer screening - referral placed for screening colonoscop yDexa - n/aRoutine labs - UTD/PCPRTC in 1 yr or sooner if needed Do monthly self breast exams.It is advised to get annual flu shot in the fall and she could obtain at local pharmacy. If you haven't received the Tdap vaccine in the last 10 years you should obtain one as well.Have mammogram yearly, bone density every 2-3 years and stay up to date on colon cancer screening. Engage in regular exercise. Avoid tobacco and illicit drugs. This lifestyle behavior pattern will lead to less health conditions and longer life span. If BMI greater than 25 dietary consult advised.Qu estions have been answered. Screening for malignant neoplasm of colon [id number] Z12.11 Screening for malignant neoplasm of breast [id number] Z12.39 Health Concerns Section Related Observation LastModified by Organization Detai ls LastModified Time None Recorded Concern Status LastModified by Organization Details LastModified Time None Recorded Advance Directives Directive None Recorded Payers Insurance Date Sequence Insurance Name Policy Number Policy Pope Covered Member ID Pope Member ID Guarantor Name 08/19/2023 1 [employer] Wilma Henson [id number] Wilma Henson 08/19/2023 1 [facility] [id number] Wilma Henson [id number] Wilma Henson 03/02/2024 1 [facility] [id number] [employer] [id number] Wilma Henson Notes Date Note Type Note Provider Name and Address Organization Details Recorded Time 1 text/html Annual GYNReported bypatient.Menstrual cycle:Normal menses Urinary symptoms:No hematuria; No incontinence Vulva:No genital lesion Vagina:Normal vaginal discharge Breast:No breast pain; No breast lump; No nipple discharge Current Contraception:Satisfied with current contraception; Monogamous relationship; Tubal ligation Sexual complaints:No sexual complaints; No pain during intercourse; Normal libido Menopausal Symptoms:No menopausal symptoms; Normal vaginal lubrication Psychological symptoms:No depression; No anxiety; No PMDD Preventive measures:Encourage self breast examination; Encourage regular exercise; Encourage no tobacco use; Encourage regular mammograms starting age 40; Followed with Q3 year pap smear and high risk HPV typing; Mammogram performed within the past year; Needs to schedule colonoscopy Kalie Maurice, KALINA-BC [address], [place], [address], [facility] 11/14/2020 15:17:18 3 text/html Annual GYNReported bypatient.History:no gynecologic complaints Menstrual cycle:Normal menses (Amenorrheic since 2019) Urinary symptoms:No hematuria; No incontinence Vulva:No genital lesion Vagina:Normal vaginal discharge Breast:No breast pain; No breast lump; No nipple discharge Current Contraception:Satisfied with current contraception; Tubal ligation Sexual complaints:No sexual complaints; No pain during intercourse; Normal libido Menopausal Symptoms:No menopausal symptoms; Normal vaginal lubrication Psychological symptoms:No depression; No anxiety; No PMDD Preventive measures:Encourage self breast examination; Encourage regular exercise; Encourage no tobacco use; Encourage regular mammograms starting age 40; Followed with yearly pap smears; Needs to schedule mammogram GIANNA Parrish- [address], [place], [address], [facility] 10/03/2022 14:34:00 4 text/html 48yo [id number] to discuss management options for hot flashes/night sweatspostmenopausal since 2019 - no bleeding sincehot flashes, night sweats, trouble sleepinghas MS, pt states she has discussed starting HRT with neurologist who agrees with treating these symptoms with HRT denies h/o DVT/PE, HTN, stroke/OR, cancer, liver disease, or elevated lipid levels GIANNA Rodriguez [address], [place], [address], [facility] 08/26/2023 13:23:01 4 text/html Presents for med check of combipatch. Start 3 months ago for joint pain, bloating and weight gain. Patient reports improvement in symptoms since starting patch, however has had issues with backorder and patch not being available. She also reports sticky residue from adhesive after working out. She would like to continue HRT however would like to switch routes. MAAME MIXON MD [address], [place], [address], [facility] 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 Post-MenopausalReported bypatient.Menopausal Symptoms:no menopausal symptoms; normal vaginal lubrication Vaginal Bleeding:history of menopause having occurred; no history of post menopausal bleeding Urinary Symptoms:no hematuria; no incontinence; no nocturia; no urinary frequency Vulva:no genital lesion; no vulvar atrophy Vagina:normal vaginal discharge; no vaginal atrophy Breast:no breast lump; no nipple discharge; no breast pain Sexual Complaints:no sexual complaints Psychological Symptoms:no depression; no anxiety Preventive Measures:encourage regular mammograms starting age 40; encourage self breast examination; encourage regular exercise; encourage no tobacco useNotes:48yo wwepostmenopausallast pap 09/2022 : nilm, HPV (-)no h/o abnormal papsmammogram last 2021 - has next scheduled 04/2024no longer taking HRT, does not want to restart GIANNA Rodriguez [address], [place], [address], [facility] 02/29/2024 11:47:30 OBGyn Episode Ob Episode Information Episode Created Date Number of Fetuses Patient Bloodtype Patient rh Status Prepregnancy Weight lbs Domestic Partner Domestic Partner Phone Father Name Negative Turner Apprentice Status 10/26/19 20 1 CLOSED Fetus Data First Name Last Name Admitted to NICU Weight (g) Sex Living Outcome Pediatric Complications Fetus ID Race Codes Race Delivery Type [id number] Primary Brayden Calculation Initial Brayden Date Initial Exam Date Initial Exam Provider Initial Ultrasound Date Last Menstrual Period Date Ultra Sound Weeks Gestation 0 Eighteen To Twenty Week Brayden Update Ultra Sound Date Fundal Height At Umbil Quickening Date Ultra Sound Latest Weeks Gestation Final Brayden Confirmed By Final Brayden Confirmed Date Final Brayden Date Ultra Sound Latest Days Gestation 0 0 Menstrual History Last Menstrual Date Menses Monthly On Bcp Conception Prior Menses Frequency Hcg Plus Date Menarche Onset Age Delivery Information Delivery Date Delivery Type Labor Anesthesia Weeks Gestation Incision Type Labor Labor Length Hrs Delivered By Post Complications Tubal Sterilization Discharge Date Comments 5 Discharge Information Feeding Method Contraceptive Method Maternal HG B and HCT Levels
--- OUTSIDE RECORDS SUMMARY | 2024-09-12 07:40 | XMS_ITS | Clinical Summary ---
Author Organization [facility] Address [address] [place] [address] Care Team Providers Care Independent Producer Name Role Phone Abdulaziz Miller MD Unavailable Laly Alonso DO Primary Care Provide r Source Comments [facility],non-owned Affiliates and Associated Physician Practices is amultiple site organization consisting of ambulatory clinics and hospital sitesin [place], [place], [place]. This disclosure is being madepursuant to the Care Everywhere program and may not contain all information available regarding this patient. Last updated 17.[facility] Allergies Active Allergy Reactions Criticality Noted Date Comments Latex Swelling 01/28/2017 Medications * Be aware that medications may not be up to date on this document. Alwaysverify current medications with the patient. Glatiramer Acetate 40 MG/ML prefilled syringe Inject 20 mg subcutaneously Active benzonatate (TESSALON) 200 MG capsule Take 1 capsule by mouth 3 times daily as needed for Cough 30 capsule 9 Active Additional Information Patient not taking.Reported on 03/10/2019 Active Problems Problem Noted Date Diagnosed Date Migraines 12/31/2009 Osteoarthritis 12/26/2008 Overview (12/26/2008): Lower back MS (multiple sclerosis) 05/09/2008 Screening for condition 05/09/2008 Overview (11/30/2014): Adult Abstraction Problem List Screening Pap Smear: Result: 12/28/2008,11/2006, 12/13/2007 Negative Mammogram: Result: Not avail in chart Immunizations Immunization Administration Dates Next Due TETANUS 03/02/2006 Family [...] on file Legal Sex Female 6:02 AM [employer] Gender Identity Not on file Sexual Orientation Not on file Last Filed Vital Signs Vital Sign Reading Time Taken Comments Blood Pressure 110/70 03/10/2019 9:07 AM [employer] Pulse 77 03/10/2019 9:07 AM [employer] Temperature 37.2 C (98.9 F) 03/10/2019 9:07 AM [employer] Respiratory Rate 16 03/10/2019 9:07 AM [employer] Oxygen Saturation 98% 03/10/2019 9:07 AM [employer] Inhaled Oxygen Concentration - - Weight 63.5 kg (140 lb) 03/10/2019 9:07 AM [employer] Height 160 cm (5' 3) 03/10/2019 9:07 AM [employer] Body Mass Index 24.8 03/10/2019 9:07 AM [employer] Plan of Treatment Health Maintenance Due Date [...] of 3 - 19+ 3-dose series) 1992 DTAP/TDAP/TD VACCINES (2 - T d or Tdap) 03/02/2016 03/02/2006 PNEUMOCOCCAL VACCINE 50+ (1 of 1 - PCV) 06/01/2023 ZOSTER VACCINE (1 of 2) 06/01/2023 COVID-19 VACCINE (1 - 2023-2 5 season) 2023 DEPRESSION SCREENING 03/02/2024 INFLUENZA VACCINE (#1) 2024 HIB VACCINE Aged Out No longer eligi ble based on patient's age to complete this topic HPV VACCINE Aged Out No longer eligi ble based on patient's age to complete this topic MENINGOCOCCAL (Group B) VACC INE SHARED DECISION-MAKING Aged Out No longer eligibl e based on patient's age to complete this topic MENINGOCOCCAL GROUPS A/C/Y/W VACCINE Aged Out No longer eligible b ased on patient's age to complete this topic Insurance [employer] Care Teams Independent Producer Relationship Specialty Start Date End Date Abdulaziz Miller MD [address] [address] PCP - OBGYN 12/26/08 Laly Alonso DO [address] [place] [id number] PCP - General 03/03/19
--- OUTSIDE RECORDS SUMMARY | 2024-09-12 07:40 | XMS_ITS | Clinical Summary ---
Author Organization [facility] Address [address] [place] [address] Care Team Providers Care Recycling Operations Manager Name Role Phone Unavailable Primary Care Provider Unavailabl e Allergies Active Allergy Reactions Criticality Noted Date Comments Latex Hives High 10/27/2011 Mold Other (See Comments) 09/27/2021 Medications cholecalciferol , vitamin D3, 5,000 unit Take 5,000 Units by mouth daily. 03/02/19 18 Active Biotin 10,000 mcg Capsule Take 10,000 mcg by mouth daily. 03/02/19 21 Active ascorbic acid, vitamin C, (VITAMIN C) 1,000 mg Tablet Take 1,000 mg by mouth 2 times daily. 03/02/19 18 Active cyanocobalamin, vitamin B-12, 2,000 mcg Tablet Take 2,000 mcg by mouth daily. 03/02/19 18 Active turmeric/turmer ic ext/pepr ext (turmeric-turme hemal ext-pepper) 500-3 mg Capsule 03/02/19 21 Active modafiniL (PROVIGIL) 200 mg TabletIndicatio ns:Relapsing-re mitting multiple sclerosis (CMS/HCC),Fatig ue, unspecified type Take 1 Tablet (200 mg) by mouth daily. 30 Tablet 2 10/18/19 22 Active ofatumumab (Kesimpta Pen) 20 mg/0.4 mL Pen InjectorIndicat ions:Multiple sclerosis (CMS/HCC) INJECT 20MG SUBCUTANEOUSLY ONCE MONTHLY 0.4 mL 3 08/04/19 25 Active Active Problems Problem Noted Date Diagnosed Date MS (multiple sclerosis) 10/27/2011 S/P endometrial ablation 10/27/2011 S/P tubal ligation 10/27/2011 Encounters Date Type Department Care Team Description 08/18/2024 12:30 PM CDT Office Visit [facility] [address] [place] [address] Jono Stewart MD [place] (Primary Dx) 08/16/2024 External Device Data STL ABSTRACTION Provider, Abstract 08/11/2024 Results Follow-Up [facility] [address] [place] [address] Jono Stewart MD CBC WITH DIFFERENTIAL, IMMUNOGLOBULINS IGG IGA IGM, VITAMIN D 25 HYDROXY 07/21/2024 External Device Data STL ABSTRACTION Provider, Abstract 07/20/2024 External Device Data STL ABSTRACTION Provider, Abstract 07/19/2024 External Device Data STL ABSTRACTION Provider, Abstract 07/11/2024 Refill [facility] [address] [place] [address] Jono Stewart MD Multiple sclerosis ([facility]) 07/10/2024 Refill [facility] [address] [place] [address] Jono Stewart MD Multiple sclerosis ([facility]) 06/14/2024 External Device Data STL ABSTRACTION Provider, Abstract from Last 3 Months Family History Medical History Relation Name Comments Cancer Maternal Grandfather Catarino Cancer Maternal Grandmother [place] Migraines Maternal Grandmother [place] Relation Name Status Comments Maternal Grandfather Catarino Maternal Grandmother [place] Social History Tobacco Use Types Packs/Day Years Used Date Smoking Tobacco: Never Smokeless Tobacco: Never Tobacco Cessation:Counseling Given: Not Answered Alcohol Use Standard Drinks/Week Comments Yes 3 (1 standard drink = 0.6 oz pur e alcohol) Comments No Sex and Gender Information Value Date Recorded Sex Assigned at Not on file 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 Gender Identity Not on file Sexual Orientation Not on file Last Filed Vital Signs Vital Sign Reading Time Taken Comments Blood Pressure 109/70 08/18/2024 12:14 PM CDT Pulse 60 08/18/2024 12:14 PM CDT Temperature - - Respiratory Rate - - Oxygen Saturation 99% 08/18/2024 12:14 PM CDT Inhaled Oxygen Concentration - - Weight 65.8 kg (145 lb) 09/27/2021 10:28 AM CDT Height 158.8 cm (5' 2.5) 08/18/2024 12:14 PM CD T Body Mass Index 26.1 09/27/2021 10:28 AM CDT Plan of Treatment Upcoming Encounters Date Type Department Care Team (Late st Contact Info) Description 02/17/2025 10:00 AM HOUSE SHORER Office Visit [facility] [address] [place] [address] Jono Stewart MD [email or web address] [place] [address] Health Maintenance Due Date Last Done Comments Pre-Diabetes and Diabetes Screening 1973 DTAP/TDAP/TD VACCINES (1 - Tdap) 1992 HEPATITIS B VACCINES (1 of 3 - 19+ 3-dose series) 1992 BREAST CANCER SCREENING 07/22/2015 07/21/2014 COLORECTAL SCREENING 2018 Colorectal Cancer Screening 2018 FIT-DNA Q 3 years 2018 FIT/FOBT Q 1 year 2018 Flex Sig/CT Colonography Q 5 years 2018 HPV/Cotest (21-29) 01/27/2021 01/28/2016, 0 11/20/2014, 11/10/2013, Additional history exists HPV/Cotest (30-65) 01/27/2021 01/28/2016, 0 11/20/2014, 11/10/2013, Additional history exists ZOSTER VACCINE (1 of 2) 06/01/2023 CERVICAL CANCER SCREENING 10/04/2023 PAP SMEAR 10/04/2023 10/03/2022, 10/31, 01/28/2016, Additional history exists INFLUENZA VACCINE (#1) 2024 Procedures Procedure Name Priority Date/Time Associated Diagnosis Comments VITAMIN D 25 HYDROXY Routine 08/10/2024 8:20 AM CDT Relapsing-remitting multiple sclerosis (CMS/HCC) Vitamin D insufficiency IMMUNOGLOBULINS IGG IGA IGM Routine 08/10/2024 8:20 AM CDT Relapsing-remitting multiple sclerosis (CMS/HCC) CBC WITH DIFFERENTIAL Routine 08/10/2024 8:20 AM CDT Relapsing-remitting multiple sclerosis (CMS/HCC) CERV/VAG CYTO SCREEN PAP RLFX HPV Routine 01/28/2016 9:46 AM HOUSE SHORER Well woman exam with routine gynecological exam MAMMO SCREEN BILAT W OR WO CAD Routine 07/21/2014 Routine gynecological examination from Last 3 Months or Most Recently Relevant to Health Maintenance Results * (ABNORMAL) CBC WITH DIFFERENTIAL (08/10/2024 8:20 AM CDT) WBC 6.3 3.8 - 10.8 Thousand/u L [facility] RBC 4.54 3.80 - 5.10 Million/uL [facility] HEMOGLOBIN 14.0 11.7 - 15.5 g/dL [facility] HEMATOCRIT 44.3 35.0 - 45.0 % [facility] MCV 97.6 80.0 - 100.0 fL [facility] MCH 30.8 27.0 - 33.0 pg [facility] MCHC 31.6(L) 32.0 - 36.0 g/dL [facility] Comment: For adults, a slight decrease in the calculated MCHC value (in the range of 30 to 32 g/dL) is most likely not clinically significant; however, it should be interpreted with caution in correlation with other red cell parameters and the patient's clinical condition. RDW 11.9 11.0 - 15.0 % [facility] PLATELETS 232 140 - 400 Thousand/u L [facility] MPV 11.2 7.5 - 12.5 fL [facility] NEUTROPHIL ABSOLUTE 3,912 1,500 - 7,800 cells/uL [facility] LYMPHOCYTE ABSOLUTE 1,613 850 - 3,900 cells/uL [facility] MONOCYTE ABSOLUTE 548 200 - 950 cells/uL [facility] EOSINOPHIL ABSOLUTE 176 15 - 500 cells/uL [facility] BASOPHILS ABSOLUTE 50 0 - 200 cells/uL [facility] NEUTROPHIL 62.1 % [facility] LYMPHOCYTES 25.6 % [facility] MONOCYTE 8.7 % [facility] EOSINOPHILS 2.8 % [facility] BASOPHILS 0.8 % [facility] Comment: FASTING:YES FASTING: YES Test Performed at: [facility] [address] [place] [address] Stephanie Ceballos MD Blood 08/10/2024 8:20 AM CDT 08/10/2024 8:21 AM CDT us Jono Stewart MD HEMATOLOGY ORDERABLES Final Resu lt [facility] [phone] [facility] [address] * VITAMIN D 25 HYDROXY (08/10/2024 8:20 AM CDT) VITAMIN D, 25 OH, TOTAL 59 30 - 100 ng/mL [email or web address] Comment: Vitamin D Status 25-OH Vitamin D: Deficiency: <20 ng/mL Insufficiency: 20 - 29 ng/mL Optimal: > or = 30 ng/mL For 25-OH Vitamin D testing on patients on D2-supplementation and patients for whom quantitation of D2 and D3 fractions is required, the [facility] 25-OH VIT D, (D2,D3), LC/MS/MS is recommended: order code 88707 (patients >2yrs). See Note 1 Note 1 For additional information, please refer to http://education.BeMyGuest/faq/TCB299 (This link is being provided for informational/ educational purposes only.) FASTING:YES FASTING: YES Test Performed at: [facility] [address] [place] [address] Stephanie Ceballos MD Blood 08/10/2024 8:20 AM CDT 08/10/2024 8:21 AM CDT us Jono Stewart MD CHEMISTRY ORDERABLES Final Resul t Performing Organization Address City/[facility] Co de Phone Number [facility] [phone] [email or web address] [address] * IMMUNOGLOBULINS IGG IGA IGM (08/10/2024 8:20 AM CDT) IGA 238 47 - 310 mg/dL [facility] IGG 1124 600 - 1640 mg/dL [facility] IGM 59 50 - 300 mg/dL [facility] Comment: FASTING:YES FASTING: YES Test Performed at: [facility] [address] Stephanie Ceballos MD Blood 08/10/2024 8:20 AM CDT 08/10/2024 8:21 AM CDT us Jono Stewart MD CHEMISTRY ORDERABLES Final Resul t Performing Organization Address City/[facility]/ZIP Co de Phone Number [facility] [phone] [email or web address] [address] * CERV/VAG CYTOPATH, THIN PREP IMAGR RFLX HPV (01/28/2016 9:46 AM HOUSE SHORER) Pathologist [facility] CLINICAL INFORMATION SEE COMMENT 02/02/2016 6:14 PM HOUSE SHORER [facility] Comment:Information not prov ided LAST MENSTRUAL PERIOD SEE COMMENT 02/02/2016 6:14 PM HOUSE SHORER [facility] Comment:INFORMATION NOT PROV IDED PREV PAP: SEE COMMENT 02/02/2016 6:14 PM HOUSE SHORER [facility] Comment:INFORMATION NOT PROV IDED PREV BX: SEE COMMENT 02/02/2016 6:14 PM HOUSE SHORER [facility] Comment:INFORMATION NOT PROV IDED SOURCE [facility] 02/02/2016 6:14 PM HOUSE SHORER [facility] ADEQUACY: SEE COMMENT 02/02/2016 6:14 PM HOUSE SHORER [facility] Comment: Satisfactory for evaluation. Endocervical/transformation zone component present. PAP INTERP SEE COMMENT 02/02/2016 6:14 PM HOUSE SHORER [facility] Comment:Negative for intraep ithelial lesion or malignancy. COMMENT SEE COMMENT 02/02/2016 6:14 PM HOUSE SHORER [facility] Comment: This Pap test has been evaluated with computer assisted technology. QI SPECIALIST: SEE COMMENT 2015 6:14 PM HOUSE SHORER [facility] Comment: MLK, CT(ASCP) CT screening location: [place] [address] [address] [place] [address] Genital SWAB OF ENDOCERVIX / Unknown Collection / Unknown 01/28/2016 9:46 AM HOUSE SHORER 01/28/2016 8:39 PM HOUSE SHORER Narrative [facility] - 02/02/2016 6:14 PM HOUSE SHORER Performing Organization Information: Site ID: [id number] Name: [facility] Address: [facility] [place] [address] Director: Stephanie Ceballos MD Abdulaziz Miller MD PATHOLOGY/CYTOLOGY ORDERABLES Fi nal Result [facility] * MAMMO DIGITAL SCREEN BILAT (07/21/2014) Anatomical Region Laterality Modality Breast Bilateral Other Abdulaziz Miller MD MAMMO ORDERABLES Final Result from Last 3 Months or Most Recently Relevant to Health Maintenance Insurance marshallindex [id number]
--- OUTSIDE RECORDS SUMMARY | 2024-09-12 07:40 | XMS_ITS | Encounter Summary ---
Author Organization [facility] Address [address] [place] [address] Care Team Providers Care Card Boxer Name Role Phone Unavailable Primary Care Provider Unavailabl e Encounter Details Date Type Department Care Team (Latest Contact Info) Description 08/11/2024 Results Follow-Up [facility] [address] [place] [address] Jono Stewrat MD [address] [place] [address] CBC WITH DIFFERENTIAL, IMMUNOGLOBULINS IGG IGA IGM, VITAMIN D 25 HYDROXY Social History Tobacco Use Types Packs/Day Years Used Date Smoking Tobacco: Never Smokeless Tobacco: Never Alcohol Use Standard Drinks/Week Comments Yes 3 (1 standard drink = 0.6 oz pur e alcohol) Comments No Sex and Gender Information Value Date Recorded Sex Assigned at Not on file 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
[2024-09-12 07:52] VITALS: BP 109/63; PULSE 57; RESP 16; TEMP 36.6; O2SAT 98; BMI 27.5
--- NOTE | 2024-09-12 08:15 | P.PNAN_ITS ---
Anes - Initial Pre Proc Eval Procedure: Operation Date: 09/12/24 09:00 Proposed Procedures p Screening Colonoscopy - Rommel Knapp MD Date/Time: 09/12/24 08:15 Surgeon: Rommel Knapp MD Pre Op Diagnosis: Neoplasm Screening Patient Data Age: 49 Gender: F Height: 1.57 m Weight: 68.3 kg Last Vital Signs Temp 97.8 F 09/12/24 07:52 Pulse 57 L 09/12/24 07:52 Resp 16 09/12/24 07:52 BP 109/63 09/12/24 07:52 Pulse Ox 98 09/12/24 07:52 O2 Del Method Room Air 09/12/24 07:52 Allergies Allergy/AdvReac Type Severity Reaction Status Date / Time Latex, Natural Rubber Allergy Intermediate Hives Verified 09/12/24 07:48 Home Medications ?Medication ?Instructions ?Recorded ?Confirmed ?Type ofatumumab 20 mg/0.4 mL 20 mg subcut MONTHLY 08/30/24 08/30/24 History subcutaneous pen injector (Kesimpta Pen) ascorbic acid (vitamin C) 1 tablet PO DIRECTED 09/06/24 09/12/24 History biotin 1 tablet PO DIRECTED 09/06/24 09/12/24 History cholecalciferol (vitamin D3) 1 tablet PO DIRECTED 09/06/24 09/12/24 History Patient hx anesthesia problems: none Family hx anesthesia problems: none Results Review: All pre-operative results and documents have been reviewed as part of the pre- operative evaluation. PMFSH Social History Social History Smoking status: Never smoker Substance use type: does not use Living arrangements: with family Anes - Eval Final PreProcedure Day of Procedure 09/12/24 08:15 Heart: regular rate and rhythm Lungs: clear to auscultation Airway: Mallampati scale Neurological: alert and oriented Last oral intake: >/= 8 hours ASA classification: II Anesthetic plan: proceed Anesthesia type and monitoring: monitored anesthesia care Results Review: All pre-operative results and documents have been reviewed as part of the pre- operative evaluation. Informed Consent: The patient's anesthetic plan and its attendant risks and benefits were discussed with the patient/family/POA. Questions were solicited and answers provided to the satisfaction of the patient/family/POA.
[2024-09-12] MEDS: LACTATED RINGERS 1,000 ML 150 ML IV CONT (08:28)
--- NOTE | 2024-09-12 08:56 | P.HP_ITS ---
H&P: HPI History of Present Illness Date/Time: 09/12/24 08:56 Chief Complaint: Screening colonoscopy Narrative: This is the patient's first colonoscopy. There are no GI symptoms and there is no family history of colorectal cancer. Review of Systems Review of Systems: All systems reviewed & are unremarkable except as noted in HPI and below [facility] Social History Social History Smoking status: Never smoker Substance use type: does not use Living arrangements: with family Meds Home Medications and Allergies Home Medications ?Medication ?Instructions ?Recorded ?Confirmed ?Type ofatumumab 20 mg/0.4 mL 20 mg subcut MONTHLY 08/30/24 08/30/24 History subcutaneous pen injector (Kesimpta Pen) ascorbic acid (vitamin C) 1 tablet PO DIRECTED 09/06/24 09/12/24 History biotin 1 tablet PO DIRECTED 09/06/24 09/12/24 History cholecalciferol (vitamin D3) 1 tablet PO DIRECTED 09/06/24 09/12/24 History Allergies Allergy/AdvReac Type Severity Reaction Status Date / Time Latex, Natural Rubber Allergy Intermediate Hives Verified 09/12/24 07:48 Vital Signs Vital Signs - 24 hr 09/12/24 07:52 Temperature 97.8 F Pulse Rate 57 L Respiratory Rate 16 Blood Pressure 109/63 Pulse Oximetry 98 Oxygen Delivery Room Air Exam Const: General: cooperative and healthy appearing Resp: Effort & Inspection: normal respiratory effort and able to speak in complete sentences Auscultation: clear to auscultation bilaterally Cardio: Rate: regular rate Rhythm: regular rhythm GI: Inspection: normal to inspection GI Palp: No No hepatosplenomegaly present Auscultation: normal bowel sounds Rectal Exam: deferred Skin: General skin exam: normal color Psych: Appearance: grossly normal Mental Status: mental status grossly normal Assessment and Plan Assessment and plan (1) Encounter for screening colonoscopy: Code(s): Z12.11 - Encounter for screening for malignant neoplasm of colon Status: Acute Assessment and Plan: The patient is deemed a good candidate for the procedure. Consent signed. Will proceed.
--- NOTE | 2024-09-12 09:16 | WPDANESPN ---
Anes - Prog Note Post-Op Date/Time: 09/12/24 09:16 Vital Signs: Last Vital Signs Temp 97.8 F 09/12/24 07:52 Pulse 57 L 09/12/24 07:52 Resp 16 09/12/24 07:52 BP 109/63 09/12/24 07:52 Pulse Ox 98 09/12/24 07:52 O2 Del Method Room Air 09/12/24 07:52 Pain Score (VAS): no Patient Feedback: Patient satisfied with anesthetic care.
[2024-09-12 09:34] VITALS: BP 96/59; PULSE 60; RESP 16; O2SAT 99
[2024-09-12 09:44] VITALS: BP 100/63; PULSE 50; RESP 15; O2SAT 100
[2024-09-12 09:54] VITALS: BP 105/63; PULSE 56; RESP 16; O2SAT 100
== END 2024-09-12 10:15 | disposition home or self-care (01) ==
PROVIDERS: Referring Provider Nurse Practitioner; Visit Provider Internal Medicine Gastroenterology
PROC: 0DJD8ZZ Inspection of Lower Intestinal Tract, Via Natural or Artificial Opening Endoscopic (ICD-10-PCS; CPT 45378; principal; 2024-09-12 09:00)
DX: Z12.11 Encounter for screening for malignant neoplasm of colon (principal); D12.2 Benign neoplasm of ascending colon
CPT/HCPCS: 45385

== ENCOUNTER 2024-09-12 08:04 | Outpatient (NON) | payer OTHER, SELFPAY ==
--- NOTE | 2024-09-12 | S_PTH ---
PATIENT: Wilma Henson LOC: [facility] U#:[id number] AGE/SX: 49/F ROOM: RE09/12/[address]: Rommel Knapp MD : 1975 BED: DIS: 09/12/2024 SPEC #: [id number] RECD: 09/13/24 08:46 STATUS: DIONE REKayla #: [id number] RAMANDEEP: 09/12/24 00:[address]: Rommel Knapp DEPT: [facility] Surgical RECD BY: Tierney Mulligan ENTERED: 09/13/24 08:46 SP TYPE: Surgical OTHR DR: PHYSICIAN NOT ON STAFF Tissues: A - Colon Polypectomy Procedures: Hematoxylin and Eosin Stain Gross and Microscopic Level 4
--- OUTSIDE RECORDS SUMMARY | 2024-09-13 08:11 | XMS_ITS | Encounter Summary ---
Author Organization [facility] Address [address] [place] [address] Care Team Providers Care Pinking Sewing Machine Operator Name Role Phone Unavailable Primary Care Provider Unavailabl e Encounter Details Date Type Department Care Team (Latest Contact Info) Description 08/11/2024 Results Follow-Up [facility] [address] [place] [address] Jono Stewart MD [address] [place] [address] CBC WITH DIFFERENTIAL, IMMUNOGLOBULINS IGG [...] on file Legal Sex Female 6:11 AM CAMPUS EXECUTIVE DIRECTOR Gender Identity Not on file Sexual Orientation Not on file documented as of this encounter Plan of Treatment Upcoming Encounters Date Type Department Care Team (Late st Contact Info) Description 02/17/2025 10:00 AM CAMPUS EXECUTIVE DIRECTOR Office Visit [facility] [address] [place] [address] Jono Stewart MD [address] [place] [address] documented as of this encounter Visit Diagnoses Not on filedocumented in this encounter
--- OUTSIDE RECORDS SUMMARY | 2024-09-13 08:11 | XMS_ITS | Referral Summary ---
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 AETNA [facility] CHOICE PLUS Care Teams Billet Grinder Relationship Specialty Start Date End Date No, Physician PCP - General 03/16/18
--- OUTSIDE RECORDS SUMMARY | 2024-09-13 08:11 | XMS_ITS | Clinical Summary ---
Author Organization [facility] Address [address] [place] [address] Care Team Providers Care Human Service Technician Name Role Phone Unavailable Primary Care Provider [...] Description 08/18/2024 12:30 PM CDT Office Visit [facility]rology [address] [place] [address] Jono Stewart MD [place] (Primary Dx) 08/16/2024 External Device Data STL ABSTRACTION Provider, Abstract 08/11/2024 Results Follow-Up [facility] [address] [place] [address] Jono Stewart MD CBC WITH DIFFERENTIAL, IMMUNOGLOBULINS IGG IGA IGM, VITAMIN D 25 HYDROXY 07/21/2024 External Device Data STL ABSTRACTION Provider, Abstract 07/20/2024 External Device Data STL ABSTRACTION Provider, Abstract 07/19/2024 External Device Data STL ABSTRACTION Provider, Abstract 07/11/2024 Refill [facility] Neu[facility] [address] [place] [address] Jono Stewart MD Multiple sclerosis ([facility]) 07/10/2024 Refill [facility] [address] [place] [address] Jono Stewart MD Multiple sclerosis ([facility]) 06/14/2024 External Device Data STL ABSTRACTION Provider, Abstract from Last 3 Months Family History Medical History Relation Name Comments Cancer Maternal Grandfather Catar[place] Cancer Maternal Grandmother [place] Migraines Maternal Grandmother [place] Relation Name Status Comments Maternal Grandfather [place] Maternal Grandmother [place] Social History Tobacco Use Types Packs/Day Years Used Date Smoking Tobacco: Never Smokeless Tobacco: Never Tobacco Cessation:Counseling Given: Not Answered Alcohol Use Standard Drinks/Week Comments Yes 3 (1 standard drink = 0.6 oz pur e alcohol) Comments No Sex and Gender Information Value Date Recorded Sex Assigned at Not on file Legal Sex Female 6:11 AM HEAVY LIFT RIGGER Gender Identity Not on file Sexual Orientation [...] st Contact Info) Description 02/17/2025 10:00 AM HEAVY LIFT RIGGER Office Visit [facility] Neurology [address] [place] [address] Jono Stewart MD [address] [place] [address] Health Maintenance Due Date Last [...] PAP RLFX HPV Routine 01/28/2016 9:46 AM HEAVY LIFT RIGGER Well woman exam with routine gynecological exam [...] Comment: FASTING:YES FASTING: YES Test Performed at: [facility] [address] [place] [address] Stephanie Ceballos MD Blood 08/10/2024 8:20 AM CDT 08/10/2024 8:21 AM CDT us Jono Stewart MD HEMATOLOGY ORDERABLES Final Resu lt [facility] [phone] [address] * VITAMIN D 25 HYDROXY (08/10/2024 8:20 AM CDT) VITAMIN D, 25 OH, TOTAL 59 30 - 100 ng/mL [facility] Comment: Vitamin D Status 25-OH Vitamin D: Deficiency: <20 ng/mL Insufficiency: 20 - 29 ng/mL Optimal: > or = 30 ng/mL For 25-OH Vitamin D testing on patients on D2-supplementation and patients for whom quantitation of D2 and D3 fractions is required, the [facility] 25-OH VIT D, (D2,D3), LC/MS/MS is recommended: order code [id number] (patients >2yrs). See Note 1 Note 1 For additional information, please refer to http://education.[employer]/faq/DUU197 (This link is being provided for informational/ educational purposes only.) FASTING:YES FASTING: YES Test Performed at: [facility] [address] [place] [address] Stephanie Ceballos MD Blood 08/10/2024 8:20 AM CDT 08/10/2024 8:21 AM CDT us Jono Stewart MD CHEMISTRY ORDERABLES Final Resul t Performing Organization Address City/[facility] Co de Phone Number [facility] [phone] [facility] [address] * IMMUNOGLOBULINS IGG IGA IGM (08/10/2024 8:20 AM CDT) IGA 238 47 - 310 mg/dL [facility] IGG 1124 600 - 1640 mg/dL [facility] IGM 59 50 - 300 mg/dL [facility] Comment: FASTING:YES FASTING: YES Test Performed at: [facility] [address] Stephanie Ceballos MD Blood 08/10/2024 8:20 AM CDT 08/10/2024 8:21 AM CDT us Jono Stewart MD CHEMISTRY ORDERABLES Final Resul t Performing Organization Address City/[facility]/ZIP Co de Phone Number [facility] [phone] [facility] [place] [facility] [address] * CERV/VAG CYTOPATH, THIN PREP IMAGR RFLX HPV (01/28/2016 9:46 AM HEAVY LIFT RIGGER) Pathologist [facility] CLINICAL INFORMATION SEE COMMENT 02/02/2016 6:14 PM HEAVY LIFT RIGGER [facility] Comment:Information not prov ided LAST MENSTRUAL PERIOD SEE COMMENT 02/02/2016 6:14 PM HEAVY LIFT RIGGER [facility] Comment:INFORMATION NOT PROV IDED PREV PAP: SEE COMMENT 02/02/2016 6:14 PM HEAVY LIFT RIGGER [facility] Comment:INFORMATION NOT PROV IDED PREV BX: SEE COMMENT 02/02/2016 6:14 PM HEAVY LIFT RIGGER [facility] Comment:INFORMATION NOT PROV IDED SOURCE End[facility]ix 02/02/2016 6:14 PM HEAVY LIFT RIGGER [facility] ADEQUACY: SEE COMMENT 02/02/2016 6:14 PM HEAVY LIFT RIGGER [facility] Comment: Satisfactory for evaluation. Endocervical/transformation zone component present. PAP INTERP SEE COMMENT 02/02/2016 6:14 PM HEAVY LIFT RIGGER [facility] Comment:Negative for intraep ithelial lesion or malignancy. COMMENT SEE COMMENT 02/02/2016 6:14 PM HEAVY LIFT RIGGER [facility] Comment: This Pap test has been evaluated with computer assisted technology. SECURITY SCREENER: SEE COMMENT 2015 6:14 PM HEAVY LIFT RIGGER [facility] Comment: MLK, CT(ASCP) CT screening location: [place] [address] [address] [place] [address] Genital SWAB OF ENDOCERVIX / Unknown Collection / Unknown 01/28/2016 9:46 AM HEAVY LIFT RIGGER 01/28/2016 8:39 PM HEAVY LIFT RIGGER Narrative [facility] - 02/02/2016 6:14 PM HEAVY LIFT RIGGER Performing Organization Information: Site ID: [facility] Name[facility] Address: [facility] [place] [address] Director: Stephanie Ceballos MD Abdulaziz Miller MD PATHOLOGY/CYTOLOGY ORDERABLES Fi nal Result [facility] * MAMMO DIGITAL SCREEN BILAT (07/21/2014) Anatomical Region Laterality Modality Breast Bilateral Other Abdulaziz Miller MD MAMMO ORDERABLES Final Result from Last 3 Months or Most Recently Relevant to Health Maintenance Insurance [employer] [id number]
--- OUTSIDE RECORDS SUMMARY | 2024-09-13 08:11 | XMS_ITS | Clinical Summary ---
Author Organization [facility] Address [address] [place] [address] Care Team Providers Care Aquatic Biologist Name Role Phone No, Physician Primary Care Provider [phone] Allergies Active Allergy Reactions Criticality Noted Date [...] a day Active cyanocobalamin /folic acid (vitamin S20-ewnch acid) 500-400 mcg tablet Take by mouth [...] on file Legal Sex Female 2:36 AM DATA OPERATIONS MANAGER Gender Identity Female 07/26/2019 11:48 AM CDT [...] patient's age to complete this topic Insurance [facility] H[facility]/PPO Address: [address] [address] [place] [address] [employer] [facility] H[facility]/PPO Address: [address] [address] [place] [address] Care Teams Aquatic Biologist Relationship Specialty Start Date End Date No, Physician PCP - General 03/16/18
--- OUTSIDE RECORDS SUMMARY | 2024-09-13 08:12 | XMS_ITS | Encounter Summary ---
Author Organization [facility] Address [address] [place] [address] Care Team Providers Care Corporate Communications Specialist Name Role Phone Laly Alonso DO Primary Care Provide r Abdulaziz Miller MD Unavailable None, Pcp Primary Care Provider Unavailabl e Abdulaziz Miller MD Primary Care Provider Laly Alonso DO Primary Care Provide r Encounter Details Date Type Department Care Team (Late st Contact Info) Description 08/22/2010 [facility]NAL [facility]PT Abdulaziz Miller MD [address] [place] [address] Social History Tobacco Use Types Packs/Day Years Used Date Smoking Tobacco: Never Alcohol Use Standard Drinks/Week Comments Yes 0 (1 standard drink = 0.6 oz pur e alcohol) 1x weekly Comments No Sex and Gender Information Value Date Recorded Sex Assigned at Not on file Legal Sex Female 6:02 AM DIAGNOSTIC TECHNICIAN Gender Identity Not on file Sexual Orientation Not on file documented as of this encounter Plan of Treatment Not on file documented as of this encounter Visit Diagnoses Not on filedocumented in this encounter Care Teams Corporate Communications Specialist Relationship Specialty Start Date End Date Laly Alonso DO [address] [place] [address] PCP - General 05/09/08 09/03/12 Abdulaziz Miller MD [address] [place] [address] PCP - OBGYN 12/26/08 None, Pcp [place] [address] PCP - General 09/04/12 05/24/13 Abdulaziz Miller MD [address] [place] [address] PCP - General Obstetrics and Gynecology 08/31/1303/02 Laly Alonso DO [address] [place] [address] PCP - General 03/03/19 documented as of this encounter
--- OUTSIDE RECORDS SUMMARY | 2024-09-13 08:12 | XMS_ITS | Clinical Summary ---
Author Organization [facility] [employer] Address [address] [place] [address] Care Team Providers Care Mold Maker Plastic Molds Name Role Phone Abdulaziz Miller MD Unavailable Laly Alonso DO Primary Care Provide r Source Comments [facility],non-owned Affiliates and Associated Physician Practices is amultiple site organization consisting of ambulatory clinics and hospital sitesin [place], [place], [place] and [place]. This disclosure is being madepursuant to the Care Everywhere program and may not contain all information available regarding this patient. Last updated 17.[facility] [employer] Allergies Active Allergy Reactions Criticality Noted Date [...] on file Legal Sex Female 6:02 AM TELECOMMUNICATIONS CABLE JOINTER Gender Identity Not on file Sexual Orientation Not on file Last Filed Vital Signs Vital Sign Reading Time Taken Comments Blood Pressure 110/70 03/10/2019 9:07 AM TELECOMMUNICATIONS CABLE JOINTER Pulse 77 03/10/2019 9:07 AM TELECOMMUNICATIONS CABLE JOINTER Temperature 37.2 C (98.9 F) 03/10/2019 9:07 AM TELECOMMUNICATIONS CABLE JOINTER Respiratory Rate 16 03/10/2019 9:07 AM TELECOMMUNICATIONS CABLE JOINTER Oxygen Saturation 98% 03/10/2019 9:07 AM TELECOMMUNICATIONS CABLE JOINTER Inhaled Oxygen Concentration - - Weight 63.5 kg (140 lb) 03/10/2019 9:07 AM TELECOMMUNICATIONS CABLE JOINTER Height 160 cm (5' 3) 03/10/2019 9:07 AM TELECOMMUNICATIONS CABLE JOINTER Body Mass Index 24.8 03/10/2019 9:07 AM TELECOMMUNICATIONS CABLE JOINTER Plan of Treatment Health Maintenance Due Date [...] patient's age to complete this topic Insurance [facility] Address: [address] [address] Care Teams Mold Maker Plastic Molds Relationship Specialty Start Date End Date Abdulaziz Miller MD [address] [address] PCP - OBGYN 12/26/08 Laly Alonso DO [address] [place] [address] PCP - General 03/03/19
--- OUTSIDE RECORDS SUMMARY | 2024-09-13 08:12 | XMS_ITS | Data Portability ---
Author Organization [facility], [place] Address [address] [place] [address] Assessment Encounter Date Assessment Date Assessment LastModified [...] a year unless there are new symptoms. [email or web address] Not available 02/29/2024 10:15:07 Plan of Treatment Reminders Order Date Submit Date Provider Last Modified By Organization Details Last Modified Time Details Appointments None recorded. Lab estradiol, serum 2022 023 [facility] (Lab), [address] , [place], [address], 3 03:47:09 lh + FSH, serum 2022 023 [facility] (Lab), [address], [place], [address], 3 03:47:10 Referral gastroenter ologist referral 2023 024 [facility], [address], [place], [address], 5 05:00:57 Procedures None recorded. Surgeries None recorded. Imaging MAMMO, screening, digital, bilateral 2023 024 [facility], [address], [place], [address], 5 05:00:57 MAMMO, screening, bilateral [address] [facility], [address], [place], [address], 3 14:46:29 US, pelvis, complete [address] [facility] [address], [place], [address], 3 14:46:28 Medication Orders estradiol 1 mg tablet 2023 024 [facility], [address], [place], [id number], 4 10:18:53 progesteron e micronized 200 mg capsule 2023 024 [facility], [address], [place], [id number], 4 10:19:19 CombiPatch 0.05 mg-0.14 mg/24 hr transdermal 2023 024 [facility]604, [address], [place], [id number], 4 10:01:29 Patient TargetsNo targets recorded. Patient InstructionsNo instructions recorded. 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] as clini roopa warra nted. Not Available [facility] (Lab) [address] [facility], [place], [address], 11/18/2020 15:00:03 10/04/19 23 10/03/2022 ESTRA DIOL [...] 561-2 1280 pg/mL 3rd Trime ster8 525-> 02794 pg/mL Not Available [facility] (Lab) [address] [facility], [place], [address], 10/04/2022 03:47:09 10/04/19 23 10/03/2022 FSH / [...] use: 25.8- 134.8 mIU/m L Not Available [facility] (Lab) [address] [facility] [facility], [place], [address], 10/04/2022 03:47:10 10/04/19 23 10/03/2022 FSH / LH LH 95.9 mIU/m L This assay was perfo rmed using [employer] ratio n reage nts and test kits. Value s obtai amelia with other assay metho ds or kits canno t be used inter jarvis eacharlotte . Femal es Mid-F ollic ular: 2.4-1 2.6 mIU/m L Mid-C ycle: 14.0- 95.6 mIU/m L Mid-L uteal : 1.0-1 1.4 mIU/m L Postm enopa use: 7.7-5 8.5 mIU/m L Not Available [facility] (Lab) [address] [place], [address], 10/04/2022 03:47:10 10/04/19 23 10/03/2022 IMAGE GUIDE D PAP AND HPV REGAR DLESS image guided Pap, HPV regardless of Pap result SEE RESULT S BELOW CASE REPOR T: Cytol ogy Gynec ologi elizabeth Repor t Case: [id number] Autho aldo alvarado Provi angela: Kashif Hope Colle cted: 10/03 1323 MEDICAL ASSOCIATE Order ing Locat ion: [place] Patho logy [...] as clini roopa ballard nted. Not Available [facility] (Lab) [address] [facility] [facility] [facility], [place], [address], 10/06/2022 13:59:30 10/25/19 22 MAMMO , scree armando, bilat eral No observ ation record ed. [email or web address] Not Available 2022 11:58:16 04/05/19 25 04/05/2024 MAMMO , scree armando, bilat eral No observ ation record ed. [email or web address] [place] [address] [address] [facility] [address], [place], [address], 04/05/2024 17:13:19 Result Notes None recorded. 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 1 14:46:56 Problem Notes None recorded. Procedures Surgical History Date Name Laterality Status Provider Name and Address Organization Details Recorded Time 3 Date of Last Pap Smear completed Bhumi Church [facility] 08/26/2023 09:31:19 2 Date of Last Mammogram completed Arelis Lozoya [facility] 10/03/2022 13:08:20 1 Other completed Suzie Saldaña [facility] 10/26/2019 13:00:54 5 delivery completed [facility] 02/29/2024 10:23:31 Tubal Ligation completed [facility] 02/29/2024 10:24:01 Imaging Results None recorded. Procedure Notes None recorded. Medical Equipment None Reported. Allergies Allergen ID Allergen Name Allergen Category Reaction Reaction Severity Criticality Documentation Date Start Date Code Code System Note Provider Name and Address Organization Details Recorded Time 1843 latex environme nt,medica tion Not available Not available Not available 10/26/2019 28690 91 RxNorm Suzie Saldaña [facility] 0 12:44:09 1844 mold extract environme nt Not available Not available Not available 10/26/2019 51094 8 RxNorm Suzie Saldaña [facility] 0 12:59:14 Medications Name Sig [...] Prescrib ed Vivien e: Yes Loca tion: [facility] M odify By: julianne Young ncounter DateTime [...] Updated DateTime 08/26/2023 158.75 cm 29.9 kg/m2 11790.33 g 102/62 mm[Hg] Bhumi Church [facility] 08/26/2023 09:29:00 Date Recorded Body height Body mass index (BMI) Body weight Systolic And Diastolic Provider Name and Address Organization Details Last Updated DateTime 10/03/2022 158.75 cm 27.2 kg/m2 79445.45 g 118/71 mm[Hg] Arelis Lozoya [facility] 10/03/2022 13:07:34 Date Recorded Body height Body mass index (BMI) Body weight Systolic And Diastolic Provider Name and Address Organization Details Last Updated DateTime 11/14/2020 158.75 cm 26.5 kg/m2 90575.08 g 126/75 mm[Hg] Migdalia Sammy [facility] 11/14/2020 11:58:00 Date Recorded Body height Body mass index (BMI) Body weight Systolic And Diastolic Provider Name and Address Organization Details Last Updated DateTime 11/23/2023 158.75 cm 28.3 kg/m2 17261 g 106/69 mm[Hg] Bhumi Church [facility] 11/23/2023 09:35:01 Date Recorded Systolic And Diastolic Provider Name and Address Organization Details Last Updated DateTime 02/29/2024 120/70 mm[Hg] MADELEINE Rodriguez [address], [place], [address], [facility] 02/29/2024 10:29:27 Date Recorded Body height Body mass index (BMI) Body weight Provider Name and Address Organization Details Last Updated DateTime 02/29/2024 158.75 cm 29.2 kg/m2 65363.68 g Miryam Whitmore [facility] 02/29/2024 10:17:49 Social History Question Answer Notes LastModified by Organizat ion Details LastModified Time Tobacco Smoking Status Never Smoker Arelis roach, [facility] 10/03/2022 13:07:54 How Many Years Have [...] Or The Highest Degree You Have Received? [id number] Information not available 11/14/2020 Are There Any Guns Present In Your Home? Yes [email or web address] Information not available 11/23/2023 Do You Use Protection During Sex? No [email or web address] Information not available 11/23/2023 Do You Use Your Seat Belt Or Car Seat Routinely? Yes Information not available 11/14/2020 Do You Have Smoke And Carbon Monoxide Detectors In Your Home? Yes Information not available 10/03/2022 How Much Tobacco Do You Smoke? No Information not available 11/14/2020 Do You Use Sunscreen Routinely? Yes [email or web address] Information not available 11/23/2023 Have You Used IV Drugs? No Information not available 11/14/2020 Do You Have Difficulty Walking Or Climbing Stairs? No [email or web address] Information not available 08/26/2023 Sex: Unknown Functional Status Question Answer Note LastModified by Organizat ion Details LastModified Time Do you use any illicit or recreational drugs? No Information not available 11/14/2020 What is your level of alcohol consumption? Occasional [email or web address] Information not available 10/26/2019 Are you able to walk? [email or web address] Information not available 11/14/2020 Are you able to care for yourself? 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 No [email or web address] Information not available 08/26/2023 What is your exercise level? Moderate [email or web address] Information not available 11/23/2023 Mental Status Question Answer Note LastModified by Organization D etails LastModified Time Do you feel stressed (tense, restless, nervous, or anxious, or unable to sleep at night)? [id number] [email or web address] Information not available 02/29/2024 Family History Relationship Description Onset Age of this Age Resolved Age Notes LastModified by Organization Details LastModified Time Mother Madhavi [email or web address] Not available 2019 12:43:11 Paternal Grandmother [...] available 2019 12:43:42 Medical History Condition Response Allergies (Food, seasonal, environmental ) N Other N Breast Cancer N Drug/Latex Allergies/Reactions N Blood Transfusion N Dermatologic Disorders N Lung Disease N Defects or Inherited Disease N Breast Problem N Gestational Diabetes N Hematologic disorders N Anesthesia Complications N History of STI N Deep Vein Thrombosis N Polycystic ovary syndrome N Anxiety Disorder N Autoimmune disease Y Arthritis N Infertility N Polyps N Acid Reflux (GERD) N History of abnormal pap N Cancer N Stroke N Varicosities N Neurologic/Epilepsy N Endometriosis N High Cholesterol N Headaches N Fibromyalgia N Kidney Disease N Heart Problems N Kidney or Bladder Problems N Thyroid Problems N GI Problems N Eating Disorder N Anemia N Art (IVF or FET) N Psychiatric Illness N Ovarian Cancer N Diabetes N Pulmonary (TB, Asthma) N Hepatitis/Liver Disease N No Past Medical History N Eczema N Urinary Tract Infection N Abuse/Domestic Violence N Asthma N Trauma/Violence N Depression/ depression N Heart Disease N Pre-Eclampsia N Hypertension N Osteoporosis N Thrombophilias N Gynecological History Statement/Question Response Abnormal Pap [...] SNOMED-CT Code Diagnosis ICD10 Code Diagnosis Note [id number] Kalie Maurice , [facility] [address] [address] 10/26/2019 12:45:52 10/26/2019 13:30:50 Gynecologic examination 00174241 Z01.419 Suggested Calcium with Vitamin D 1200-1500m g daily. Patient advised to get an annual flu shot in the fall and she could obtain at [facility] or [facility] clinic. Also to obtain TDap vaccinatio [...] monogamous relationsh ip. Abnormal u terine bleeding [id number] 9100 N93.9 Hx of We agreed to start with lab work since exam was wnl & only a couple instances of intermenst rual spotting or tail end period spotting. She will continue to track her menses. If the next 2-3mos continues to have intermenst rual spotting & labs are wnl we discussed pursuing a pelvic US. F/U in 2-3mos for AUB. [id number] Kalie Maurice , [facility] [address] [address] 01/17/2020 10:22:56 01/17/2020 12:14:59 Abnormal uterine bleeding [id number] 9100 N93.9 We agreed to today to continue to keep menstrual diary. If AUB begins to recurr she will contact office for TVUS w/ OV. As of today, feels periods are back on track. Lab reviewed & wNL. Time spent in visit is a total of 15 mins with at least 50% of visit consisting of counseling and review of plan of care. [id number] Kalie Maurice , [facility] [address] [address] 11/14/2020 11:40:28 11/15/2020 13:45:05 Gynecologic examination 49707162 Z01.419 Suggested Calcium with Vitamin D 1200-1500m g daily. Patient advised to get an annual flu shot in the fall and she could obtain at [facility] or [facility] care clinic. Also to obtain TDap vaccinatio [...] mmo done wnlNo other issues or concerns [id number] Kalie Maurice , [facility] [address] [address] 10/03/2022 12:59:36 10/03/2022 14:46:28 Gynecologic examination 41298053 Z01.419 Z11.51 Suggested Calcium with Vitamin D 1200-1500m g daily. Patient advised to get an annual flu shot in the fall and she could obtain at [facility] or [facility] care clinic. Also to obtain TDap vaccinatio [...] Screen naRoutine Labs PCP Screening mammography 24 484815 Z12.31 Secondary amenorrhea 156 840288 N91.1 Will update US & LabsPossib ly amenorrhei c due to MS medication s but we discussed we need to ensure no risks of precancers /cancers etc. [id number] GIANNA Rodriguez [place] [address] [address] 08/26/2023 09:23:05 08/26/2023 14:20:39 Hormone replacement therapy 186909561 Z79.890 Discussed management options for hot flashes/ni [...] migraine w/ visual changes, breast cancer dx, PR/stroke, DVT/PE, Endometria l cancer. Please contact office with any new or worsening side effects or adverse reactions. Or if a medical emergency please go to nearest ED/Urgency care for further evaluation . Menopausal flushing 1983 31493 N95.1 [id number] MAAME MIXON MD [place] [address] [address] 11/23/2023 09:22:15 11/23/2023 10:21:07 Menopausal syndrome 003613740 N95.9 We discussed Menopausal Hormone therapy (MHT) [...] migraine w/ visual changes, breast cancer dx, PR/stroke, DVT/PE, Endometria l cancer. Please contact office with any new or worsening side effects or adverse reactions. Or if a medical emergency please go to nearest ED/Urgency care for further evaluation . - will transition to PO estrogen and progestero ne; discussed slightly increased risk of VTE with PO vs transderma l route- rtc 4 months for med check [id number] GIANNA Rodriguez [place] [address] [address] 02/29/2024 09:58:54 02/29/2024 12:09:53 Gynecologic examination 72190245 Z01.419 WWEpostmen opausalPap - UTD, not indicated [...] answered. Screening for malignant neoplasm of colon 502543271 Z12.11 Screening for malignant neoplasm of breast 650712231 Z12.39 Health Concerns Section Related Observation LastModified by Organization Detai ls LastModified Time None Recorded Concern Status LastModified by Organization Details LastModified Time None Recorded Advance Directives Directive None Recorded Payers Insurance Date Sequence Insurance Name Policy Number Policy Pope Covered Member ID Pope Member ID Guarantor Name 08/19/2023 1 [employer] Wilma Henson [id number] Wilma Henson 08/19/2023 1 [facility] [id number] Wilma Henson [id number] Wilma Henson 03/02/2024 1 [facility] [id number] [employer] [id number] Wilma Henson Notes Date Note Type Note [...] colonoscopy Kalie Maurice, [facility] [address], [place], [address], [facility] 11/14/2020 15:17:18 3 text/html Annual GYNReported [...] schedule mammogram GIANNA Parrish- [address], [place], [address], [facility] 10/03/2022 14:34:00 4 text/html 48yo [id number] to discuss management options for hot flashes/night sweatspostmenopausal since 2019 - no bleeding sincehot flashes, night sweats, trouble sleepinghas MS, pt states she has discussed starting HRT with neurologist who agrees with treating these symptoms with HRT denies h/o DVT/PE, HTN, stroke/PR, cancer, liver disease, or elevated lipid levels GIANNA Rodriguez [address], [place], [address], [facility] 08/26/2023 13:23:01 4 text/html Presents [...] routes. MAAME MIXON MD [address], [place], [address], [facility] 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 02/29/2024 11:47:30 OBGyn Episode Ob Episode Information Episode Created Date Number of Fetuses Patient Bloodtype Patient rh Status Prepregnancy Weight lbs Domestic Partner Domestic Partner Phone Father Name Political Science Chair Status 10/26/19 20 1 CLOSED Fetus Data [...]
== END 2024-09-12 08:05 | disposition home or self-care (01) ==
PROVIDERS: Visit Provider Internal Medicine Gastroenterology
DX: Z12.11 Encounter for screening for malignant neoplasm of colon (principal); D12.2 Benign neoplasm of ascending colon
CPT/HCPCS: 88305